=== PATIENT | male | born 1945 | race Caucasian/White ===

== ENCOUNTER 2018-02-13 14:25 | Emergency (ER) | payer MEDICARE, OTHER ==
[~2018-02-13] VITALS: Ht 175.3 cm; Wt 81.0 kg
[~2018-02-13 14:25] MED LIST: DIOV160T3 PO; GABA300C3 PO; GLUCTAB PO; MOBI7.5T PO; ULTR50TA PO
[2018-02-13] MEDS ORDERED: METF500T4 PO (14:39)
[2018-02-13] MEDS ORDERED: VALS160T4 PO (14:39)
[2018-02-13 14:40] VITALS: BP 125/85; PULSE 66; RESP 15; TEMP 98.9; O2SAT 95
--- NOTE | 2018-02-13 15:14 | PD ---
HPI Chief Complaint: General Weakness Time Seen by Provider: 15:01 Travel History International Travel<30 days: No Contact w/Intl Traveler<30days: No Traveled to known affect area: No History of Present Illness HPI 72yo M with PMH of COPD presents to the ED with c/o generalized weakness. Pt said he was going at his brother's house and he has little dogs. He looked down at the dogs and felt lightheaded. Said he is no longer lightheaded but still feels generalized weakness. Has been having some cough, nonbloody diarrhea. Pt is still a cig smoker. Denies any fever, chest pain, sob, n/v, abdominal pain, dysuria, hematuria, focal weakness or numbness. PFSH Past Medical History Diabetes: Yes Patient Takes Glucophage: Yes Diminished Hearing: No Fibromyalgia: Yes Hypertension: Yes Tetanus Vaccination: Unknown Influenza Vaccination: Yes ?: Not Past Surgical History Abdominal Surgery: Yes (HERNIA X 3) Tonsillectomy: Yes Social History Alcohol Use: No (PT DENIES) Tobacco Use: Yes (1 PPD) Substance Use: No Allergies-Medications (Allergen,Severity, Reaction): Coded Allergies: Sulfa (Sulfonamide Antibiotics) (Unverified Adverse Reaction, Intermediate , Rash, 05/19/17) Reported Meds & Prescriptions Reported Meds & Active Scripts Active Reported Valsartan-Hydrochlorothiazide 160-12.5 Mg Tab 1 Tab PO DAILY Metformin ER (Metformin HCl) 500 Mg Isha 500 Mg PO DAILY With evening meal Review of Systems Except as stated in HPI: all other systems reviewed are Neg Physical Exam Narrative GENERAL: 72yo M in mild distress. SKIN: Focused skin assessment warm/dry. HEAD: Atraumatic. Normocephalic. EYES: Pupils equal and round. No scleral icterus. No injection or drainage. ENT: No nasal bleeding or discharge. Mucous membranes pink and moist. NECK: Trachea midline. No JVD. CARDIOVASCULAR: Regular rate and rhythm. No murmur appreciated. RESPIRATORY: No accessory muscle use. Coarse breath sounds bilaterally. GASTROINTESTINAL: Abdomen soft, non-tender, nondistended. No rebound tenderness or guarding. MUSCULOSKELETAL: No obvious deformities. No clubbing. No cyanosis. No edema. NEUROLOGICAL: Awake and alert. No obvious cranial nerve deficits. Motor grossly within normal limits in all extremities. Sensation equal bilaterally. Normal speech. PSYCHIATRIC: Appropriate mood and affect; insight and judgment normal. Data Data Last Documented VS Vital Signs Date Time Temp Pulse Resp B/P (MAP) Pulse Ox O2 Delivery O2 Flow Rate FiO2 02/13/18 17:54 72 16 170/80 (110) 100 Room Air 02/13/18 14:40 98.9 Orders Orders Electrocardiogram (02/13/18 15:10) Basic Metabolic Panel (Bmp) (02/13/18 15:10) Complete Blood Count With Diff (02/13/18 15:10) Magnesium (Mg) (02/13/18 15:10) Urinalysis - C+S If Indicated (02/13/18 15:10) Orthostatic Vital Signs (02/13/18 15:10) Chest, Single Ap (02/13/18 ) Urinary Catheter Insert/Apply (02/13/18 17:07) Sodium Chlor 0.9% 1000 Ml Inj (Ns 1000 M (02/13/18 17:15) Labs Laboratory Tests Test 02/13/18 15:45 02/13/18 17:50 White Blood Count 13.7 TH/MM3 Red Blood Count 4.45 MIL/MM3 Hemoglobin 14.0 GM/DL Hematocrit 42.4 % Mean Corpuscular Volume 95.3 FL Mean Corpuscular Hemoglobin 31.4 PG Mean Corpuscular Hemoglobin Concent 33.0 % Red Cell Distribution Width 12.7 % Platelet Count 231 TH/MM3 Mean Platelet Volume 7.3 FL Neutrophils (%) (Auto) 86.4 % Lymphocytes (%) (Auto) 8.3 % Monocytes (%) (Auto) 3.7 % Eosinophils (%) (Auto) 0.6 % Basophils (%) (Auto) 1.0 % Neutrophils # (Auto) 11.9 TH/MM3 Lymphocytes # (Auto) 1.1 TH/MM3 Monocytes # (Auto) 0.5 TH/MM3 Eosinophils # (Auto) 0.1 TH/MM3 Basophils # (Auto) 0.1 TH/MM3 CBC Comment DIFF FINAL Differential Comment Blood Urea Nitrogen 19 MG/DL Creatinine 1.00 MG/DL Random Glucose 134 MG/DL Calcium Level 9.0 MG/DL Magnesium Level 2.1 MG/DL Sodium Level 136 MEQ/L Potassium Level 4.0 MEQ/L Chloride Level 105 MEQ/L Carbon Dioxide Level 24.7 MEQ/L Anion Gap 6 MEQ/L Estimat Glomerular Filtration Rate 73 ML/MIN Urine Color YELLOW Urine Turbidity CLEAR Urine pH 6.0 Urine Specific [place] 1.025 Urine Protein TRACE mg/dL Urine Glucose (UA) NEG mg/dL Urine Ketones 15 mg/dL Urine Occult Blood TRACE Urine Nitrite NEG Urine Bilirubin NEG Urine Urobilinogen 0.2 MG/DL Urine Leukocyte Esterase NEG Urine RBC 4-9 /hpf Urine WBC 0-2 /hpf Urine Squamous Epithelial Cells 6-8 /hpf Urine Bacteria NONE /hpf Microscopic Urinalysis Comment CULT NOT INDICATED MDM Medical Decision Making Medical Screen Exam Complete: Yes Emergency Medical Condition: Yes Interpretation(s) EKG: NSR 66bpm. Normal axis. No ST segment elevation or depression. Differential Diagnosis Dehydration vs. electrolyte abnormality vs. arrhythmia vs. pneumonia vs. UTI Narrative Course 72yo M with COPD here with c/o lightheadedness with neck movement that has resolved, generalized weakness and diarrhea. Pt has COPD and coarse breath sounds. He does not want any treatment and denies any chest pain or sob. Labs reviewed, mild leukocytosis at 13.7. H/H normal. BMP unremarkable except mildly elevated BUN:creatinine ratio. Pt likely dehydrated, given NS IVF. Creatinine normal. CXR negative. Vital signs stable. Pt said he has trouble urinating in the hospital on command so wanted a zazueta. Zazueta catheter placed and only 250cc of urine came out. Pt has no abdominal pain or distension on exam. Pt feels better and wants to go home. I gave pt the option of keeping the zazueta and following up with urology or remove zazueta and come back if he cant urinate. Pt said he will have it remove and usually have no problem urinating at home but will return if he cant urinate. Return precautions given. Diagnosis Primary Impression: Generalized weakness Patient Instructions: General Instructions Departure Forms: Tests/Procedures Additional Instructions: Please follow up with your primary care physician in 2-3 days. Return to the ED if symptoms worsen. Med/Other Pt SpecificInfo: No Change to Meds Disposition: 01 DISCHARGE HOME Condition: Stable Chantelle Gilbert DO February 13, 2018 15:14
[2018-02-13 15:33] VITALS: BP_SYST 140; BP_SYST 150; BP_SYST 161; BP_DIAS 74; BP_DIAS 80; BP_DIAS 82; RESP 16
--- NOTE | 2018-02-13 15:39 | RADRPT ---
EXAM DATE/TIME: 02/13/2018 15:25 [facility] COMPARISON: No previous studies available for comparison. INDICATIONS : Sudden onset of weakness, dizzy, syncopy, today MEDICAL HISTORY : Chronic obstructive pulmonary disease. SURGICAL HISTORY : None. ENCOUNTER: Initial ACUITY: 1 day PAIN SCORE: 0/10 LOCATION: Bilateral chest FINDINGS: A single view of the chest demonstrates the lungs to be symmetrically aerated without evidence of mas s, infiltrate or effusion. The cardiomediastinal contours are unremarkable. Osseous structures are intact. CONCLUSION: No acute disease. Raphael Byrd MD FACR on February 13, 2018 at 15:37 Board Certified Radiologist. This report was verified electronically.
[2018-02-13 16:01] LABS: AUTOMATED NEUTROPHIL # 11.9 TH/MM3 (1.8-7.7); BASOPHIL # 0.1 TH/MM3 (0-0.2); EOSINOPHIL # 0.1 TH/MM3 (0-0.4); EOSINOPHIL % 0.6 % (0.0-4.0); HEMATOCRIT 42.4 % (39.0-51.0); LYMPH % 8.3 % (9.0-44.0); LYMPHOCYTE # 1.1 TH/MM3 (1.0-4.8); MEAN CELL VOLUME 95.3 FL (80.0-100.0); MEAN CORPUSCULAR HEMOGLOBIN 31.4 PG (27.0-34.0); MEAN PLATELET VOLUME 7.3 FL (7.0-11.0); MONO % 3.7 % (0.0-8.0); MONOCYTE # 0.5 TH/MM3 (0-0.9); NEUT % 86.4 % (16.0-70.0); PLATELET COUNT 231 TH/MM3 (150-450); RED BLOOD COUNT 4.45 MIL/MM3 (4.50-5.90); RED CELL DISTRIBUTION WIDTH 12.7 % (11.6-17.2); WHITE BLOOD COUNT 13.7 TH/MM3 (4.0-11.0)
[2018-02-13 16:13] LABS: BICARBONATE 24.7 MEQ/L (21.0-32.0); MAGNESIUM 2.1 MG/DL (1.5-2.5)
[2018-02-13] MEDS ORDERED: SODIUM CHLOR 0.9% 1000 ML INJ 1,000 ML IV ONE (17:15)
[2018-02-13 17:54] VITALS: BP 170/80; PULSE 72; RESP 16; O2SAT 100
[2018-02-13 18:05] LABS: BILIRUBIN, URINE NEG (NEG); BLOOD, URINE TRACE (NEG); GLUCOSE,URINE NEG (NEG); KETONE, URINE 15 mg/dL (NEG); NITRITE,URINE NEG (NEG); URINE COLOR YELLOW (YELLW/STRAW); URINE LEUKOCYTE ESTERASE NEG (NEG)
[2018-02-13 18:12] LABS: WBC, URINE 0-2 /hpf (0-5)
[2018-02-13 19:47] VITALS: BP 135/72
--- NOTE | 2018-02-14 20:07 | EKG ---
Date Performed: 02/13/2018 Time Performed: 15:21:37 PTAGE: 72 years EKG: Sinus rhythm Consider anteroseptal ischemia. ABNORMAL ECG PREVIOUS TRACING : 11/14/2013 14.07 DOCTOR: Pro Osborn Interpretating Date/Time 02/14/2018 20:05:55
== END 2018-02-13 19:50 | disposition home or self-care (01) ==
LOC: PHED 14:25
DX: R53.1 Weakness (principal); R94.31 Abnormal electrocardiogram [ECG] [EKG]; J44.9 Chronic obstructive pulmonary disease, unspecified; E11.9 Type 2 diabetes mellitus without complications; I10 Essential (primary) hypertension; M79.7 Fibromyalgia; F17.210 Nicotine dependence, cigarettes, uncomplicated
CPT/HCPCS: 51702; 71045; 80048; 81001; 83735; 85025; 93005; 96360; 99285; J7030

== ENCOUNTER 2018-03-16 17:22 | Inpatient (IN) | payer MEDICARE ==
[~2018-03-16] VITALS: Ht 177.8 cm; Wt 94.4 kg
[~2018-03-16 17:22] MED LIST changes: -DIOV160T3 PO; -GABA300C3 PO; -GLUCTAB PO; +METF500T4 PO; -MOBI7.5T PO; -ULTR50TA PO; +VALS160T4 PO
[2018-03-16 17:30] VITALS: BP 127/64; PULSE 106; RESP 20; TEMP 100; O2SAT 93
[2018-03-16] MEDS ORDERED: SODIUM CHLOR 0.9% 1000 ML INJ 1,000 ML IV SCH (17:39)
[2018-03-16 17:42] VITALS: O2SAT 95
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
[2018-03-16] MEDS ORDERED: NYSTATIN SUSP 500,000 U/5 ML CUP SWISH-SWAL ONE (17:45)
--- NOTE | 2018-03-16 18:12 | RADRPT ---
EXAM DATE: 03/16/2018 5:58 PM EDT AGE/SEX: 72 years / Male INDICATIONS: Fever CLINICAL DATA: This is the patient's initial encounter. Patient reports that signs and symptoms have been present for 1 day and indicates a pain score of 0/10. MEDICAL/SURGICAL HISTORY: None. None. COMPARISON: [facility], CHEST SINGLE AP, 02/13/2018. . FINDINGS: A single AP view of the chest demonstrates the lungs to be symmetrically aerated without evidence of mass, infiltrate or effusion. The cardiomediastinal contours are unremarkable. Osseous structures a re intact. CONCLUSION: Negative examination. Electronically signed by: Shahzad Steel MD 03/16/2018 6:10 PM EDT
[2018-03-16] MEDS ORDERED: ACETAMINOPHEN 325 MG TAB PO ONE (18:15)
[2018-03-16 18:32] LABS: AUTOMATED NEUTROPHIL # 11.2 TH/MM3 (1.8-7.7); BASOPHIL # 0.1 TH/MM3 (0-0.2); BASOPHIL % 0.4 % (0.0-2.0); EOSINOPHIL % 0.1 % (0.0-4.0); HEMATOCRIT 42.1 % (39.0-51.0); HEMOGLOBIN 14.4 GM/DL (13.0-17.0); LYMPH % 8.8 % (9.0-44.0); LYMPHOCYTE # 1.2 TH/MM3 (1.0-4.8); MEAN CELL VOLUME 93.3 FL (80.0-100.0); MEAN CORPUSCULAR HEMOGLOBIN 31.9 PG (27.0-34.0); MEAN CORPUSCULAR HGB CONC 34.2 % (32.0-36.0); MEAN PLATELET VOLUME 8.2 FL (7.0-11.0); MONO % 8.7 % (0.0-8.0); MONOCYTE # 1.2 TH/MM3 (0-0.9); PLATELET COUNT 194 TH/MM3 (150-450); RED BLOOD COUNT 4.51 MIL/MM3 (4.50-5.90); RED CELL DISTRIBUTION WIDTH 13.5 % (11.6-17.2); WHITE BLOOD COUNT 13.6 TH/MM3 (4.0-11.0)
[2018-03-16 18:41] LABS: INTERNATIONAL NORMALIZED RATIO 1.1 RATIO; PROTHROMBIN TIME - PATIENT 11.1 SEC (9.8-11.6)
[2018-03-16 19:01] LABS: ALBUMIN 3.3 GM/DL (3.4-5.0); ALKALINE PHOSPHATASE 105 U/L (45-117); ALT (GPT) 20 U/L (12-78); AST (GOT) 12 U/L (15-37); BICARBONATE 22.2 MEQ/L (21.0-32.0); BLOOD UREA NITROGEN 9 MG/DL (7-18); CALCIUM 8.5 MG/DL (8.5-10.1); CHLORIDE 108 MEQ/L (98-107); CREATININE 1.41 MG/DL (0.60-1.30); GLOMERULAR FILTRATION RATE 49 ML/MIN (>89); GLUCOSE,RANDOM 113 MG/DL (74-106); MAGNESIUM 1.7 MG/DL (1.5-2.5); SODIUM (NA) 141 MEQ/L (136-145)
[2018-03-16] MEDS ORDERED: PIPERACIL-TAZO 3.375 GM PREMIX 50 ML IV ONE (19:30)
[2018-03-16] MEDS ORDERED: VANCOMYCIN INJ 1,000 MG in SODIUM CHLOR 0.9% 250 ML INJ 250 ML IV ONE (19:30)
[2018-03-16] MEDS ORDERED: POTASSIUM CHLORIDE 20 MEQ CONTROLLED RELEASE TAB PO ONE (19:30)
[2018-03-16 19:31] VITALS: BP 118/61; PULSE 88; RESP 20; O2SAT 100
[2018-03-16 20:00] VITALS: BP 142/70; PULSE 80; RESP 17; O2SAT 99
[2018-03-16 20:22] LABS: BACTERIA, URINE RARE /hpf; BILIRUBIN, URINE NEG (NEG); BLOOD, URINE MOD (NEG); CALCIUM OXALATE CRYSTALS,URINE RARE /hpf; GLUCOSE,URINE NEG (NEG); HYALINE CAST, URINE 8 /lpf (RARE); KETONE, URINE 10 mg/dL (NEG); MUCUS URINE FEW /lpf (OCC); NITRITE,URINE NEG (NEG); URINE COLOR YELLOW (YELLW/STRAW); URINE LEUKOCYTE ESTERASE NEG (NEG)
[2018-03-16 21:00] VITALS: BP 133/68; PULSE 76; RESP 16; O2SAT 96
--- NOTE | 2018-03-16 21:39 | RADRPT ---
EXAM DATE: 03/16/2018 6:40 PM EDT AGE/SEX: 72 years / Male INDICATIONS: Altered mental status. CLINICAL DATA: This is the patient's initial encounter. Patient reports that signs and symptoms have been present for 1 day and indicates a pain score of Nonresponsive. MEDICAL/SURGICAL HISTORY: Hypertension. Diabetes. Fibromyalgia. None. RADIATION DOSE: 37.22 CTDI (mGy) COMPARISON: [facility] – [place], [place] BRAIN W/O CONTRAST, 11/14/2013. . TECHNIQUE: CT of the head without contrast. Using automated exposure control and adjustment of the mA and/or kV according to patient size, radiation dose was kept as low as reasonably achievable to ob tain optimal diagnostic quality images. FINDINGS: There is a small focus of encephalomalacia in the right frontoparietal region. There is patchy mild d iminished attenuation in deep white matter. Small foci of encephalomalacia in the cerebellar hemisphe res bilaterally are unchanged. There is no evidence of intracranial hemorrhage or mass. Nothing to sp ecifically suggest acute infarction. Stable opacification of the left maxillary sinus. Extracranial structures otherwise unremarkable. CONCLUSION: 1. No acute intracranial findings. Electronically signed by: Shahzad Steel MD 03/16/2018 9:37 PM EDT
--- NOTE | 2018-03-16 21:56 | PD ---
Physical Exam Date Seen by Provider: Mar 16, 2018 Time Seen by Provider: 21:50 Narrative GENERAL: Well-developed well-nourished mildly disheveled male in no acute distress no respiratory distress; GCS 14 SKIN: Warm and dry. HEAD: Normocephalic. EYES: No scleral icterus. Pupils equal round reactive to light extraocular muscles intact. No injection or drainage. NECK: Supple, trachea midline. No JVD or lymphadenopathy. No meningismus no nuchal rigidity. CARDIOVASCULAR: Regular rate and rhythm without murmurs, gallops, or rubs. RESPIRATORY: Breath sounds equal bilaterally. No accessory muscle use. GASTROINTESTINAL: Abdomen soft, non-tender, nondistended. MUSCULOSKELETAL: No cyanosis, or edema. BACK: Nontender without obvious deformity. No CVA tenderness. Data Data Last Documented VS Vital Signs Date Time Temp Pulse Resp B/P (MAP) Pulse Ox O2 Delivery O2 Flow Rate FiO2 03/16/18 21:00 76 16 133/68 (89) 96 Room Air 03/16/18 17:30 100.0 Orders Orders Sepsis Workup Initiated (03/16/18 ) Electrocardiogram (03/16/18 17:39) Complete Blood Count With Diff (03/16/18 17:39) Comprehensive Metabolic Panel (03/16/18 17:39) Prothrombin Time / Inr (Pt) (03/16/18 17:39) Act Partial Throm Time (Ptt) (03/16/18 17:39) Lactic Acid Sepsis Protocol (03/16/18 17:39) Magnesium (Mg) (03/16/18 17:39) Urinalysis - C+S If Indicated (03/16/18 17:39) Blood Culture (03/16/18 17:39) Chest, Single Ap (03/16/18 17:39) Blood Glucose (03/16/18 17:39) Ecg Monitoring (03/16/18 17:39) Iv Access Insert/Monitor (03/16/18 17:39) Oximetry (03/16/18 17:39) Oxygen Administration (03/16/18 17:39) Ct Brain W/O Iv Contrast(Rout) (03/16/18 17:39) Nystatin Liq (Mycostatin Liq) (03/16/18 17:45) Sodium Chlor 0.9% 1000 Ml Inj (Ns 1000 M (03/16/18 17:39) Alcohol (Ethanol) (03/16/18 17:53) Acetaminophen (Tylenol) (03/16/18 18:15) Potassium Chloride (Kcl) (03/16/18 19:30) Vancomycin Inj (Vancomycin Inj) (03/16/18 19:30) Piperacil-Tazo 3.375 Gm Premix (Zosyn 3. (03/16/18 19:30) Urine Culture (03/16/18 19:40) Labs Laboratory Tests Test 03/16/18 17:47 03/16/18 19:40 White Blood Count 13.6 TH/MM3 Red Blood Count 4.51 MIL/MM3 Hemoglobin 14.4 GM/DL Hematocrit 42.1 % Mean Corpuscular Volume 93.3 FL Mean Corpuscular Hemoglobin 31.9 PG Mean Corpuscular Hemoglobin Concent 34.2 % Red Cell Distribution Width 13.5 % Platelet Count 194 TH/MM3 Mean Platelet Volume 8.2 FL Neutrophils (%) (Auto) 82.0 % Lymphocytes (%) (Auto) 8.8 % Monocytes (%) (Auto) 8.7 % Eosinophils (%) (Auto) 0.1 % Basophils (%) (Auto) 0.4 % Neutrophils # (Auto) 11.2 TH/MM3 Lymphocytes # (Auto) 1.2 TH/MM3 Monocytes # (Auto) 1.2 TH/MM3 Eosinophils # (Auto) 0.0 TH/MM3 Basophils # (Auto) 0.1 TH/MM3 CBC Comment DIFF FINAL Differential Comment Prothrombin Time 11.1 SEC Prothromb Time International Ratio 1.1 RATIO Activated Partial Thromboplast Time 27.3 SEC Blood Urea Nitrogen 9 MG/DL Creatinine 1.41 MG/DL Random Glucose 113 MG/DL Total Protein 6.0 GM/DL Albumin 3.3 GM/DL Calcium Level 8.5 MG/DL Magnesium Level 1.7 MG/DL Alkaline Phosphatase 105 U/L Aspartate Amino Transf (AST/SGOT) 12 U/L Alanine Aminotransferase (ALT/SGPT) 20 U/L Total Bilirubin 1.0 MG/DL Sodium Level 141 MEQ/L Potassium Level 2.9 MEQ/L Chloride Level 108 MEQ/L Carbon Dioxide Level 22.2 MEQ/L Anion Gap 11 MEQ/L Estimat Glomerular Filtration Rate 49 ML/MIN Lactic Acid Level 1.2 mmol/L Urine Color YELLOW Urine Turbidity HAZY Urine pH 7.0 Urine Specific [place] 1.018 Urine Protein 30 mg/dL Urine Glucose (UA) NEG mg/dL Urine Ketones 10 mg/dL Urine Occult Blood MOD Urine Nitrite NEG Urine Bilirubin NEG Urine Urobilinogen 2.0 MG/DL Urine Leukocyte Esterase NEG Urine RBC 89 /hpf Urine WBC 4 /hpf Urine Calcium Oxalate Crystals RARE /hpf Urine Bacteria RARE /hpf Urine Hyaline Casts 8 /lpf Urine Mucus FEW /lpf Microscopic Urinalysis Comment CATH-CULTURE IND MDM Medical Record Reviewed: Yes Supervised Visit with DORIAN: Yes Differential Diagnosis Altered mentation, sepsis,sirs, dehydration, electrolyte disturbance, metabolic disturbance, ICH, TIA, CVA, substance ingestion, delirium psychosis Narrative Course I, Dr. Coker, have reviewed the advance practice practitioner's documentation and am in agreement, met with the patient face to face, made the diagnosis, and the medical decision making was done by me. *My assessment and Findings: 32-year-old male presents to the emergency department by EMS transport from home where reportedly per EMS his nephew found him to be altered from his baseline when checking on him today. Patient here thinks that he is in [place] visiting a friend at the hospital and that the president is [place]. Patient denies any injury or fall. Patient does not know if he has had any fever or chills. Patient does not report any chest pain shortness of breath or abdominal pain. Patient has history of recent visit to the emergency department in February for generalized weakness. Patient denies any antibiotic use. On physical exam patient is pleasant elderly male in no acute distress no respiratory distress appears dehydrated without any meningismus lung sounds are clear to auscultation heart sounds are regular without murmur or rub abdomen soft nontender. Plan would be to obtain CBC metabolic panel lactic acid urinalysis chest x-ray and CT brain. To evaluate this patient for AMS with concern for infectious etiology electrolyte or metabolic disturbance delirium versus ingestant versus mass versus TIA CVA or. I concur with current evaluation initiated by mid-level provider. Concern for sirs (HR,WCC)/sepsis ( possible uti) with altered mentation. Sepsis Criteria SIRS Criteria (2 or more): Heart rate over 90, WBC > 19360, < 4000 or > 10% bands Danisha Coker MD Mar 16, 2018 21:56
[2018-03-16 23:14] VITALS: BP 126/64; PULSE 67; RESP 14; TEMP 98.2; O2SAT 95
[2018-03-16] MEDS ORDERED: MAGNESIUM HYDROXIDE SUSP 30 ML CUP PO PRN (23:15)
[2018-03-16] MEDS ORDERED: NALOXONE HCL 0.4 MG/ML AMP IV PUSH PRN (23:15)
[2018-03-16] MEDS ORDERED: LACTULOSE SYRUP 20 GM/30 ML CUP PO PRN (23:15)
[2018-03-16] MEDS ORDERED: BISACODYL 10 MG SUPP RECTAL PRN (23:15)
[2018-03-16] MEDS ORDERED: SENNOSIDES 8.6 MG TAB PO PRN (23:15)
[2018-03-16] MEDS ORDERED: ONDANSETRON HCL 4 MG/2 ML VIAL IVP PRN (23:15)
[2018-03-16] MEDS ORDERED: SODIUM CHLORIDE 0.9% FLUSH 10 ML FLUSH IV FLUSH PRN (23:15)
[2018-03-17] VITALS (8 sets, daily range): BP systolic 140–186; BP diastolic 79–101; PULSE 71–76; RESP 16–20; TEMP 97–98.9; O2SAT 95–97
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
[2018-03-17] MEDS ORDERED: DEXTROSE 50% IN WATER 50 ML VIAL(D50) IV PUSH PRN (00:15)
[2018-03-17] MEDS ORDERED: GLUCAGON 1 MG/ML VIAL OTHER PRN (00:15)
[2018-03-17] MEDS: NS + KCL 20 MEQ INJ 1,000 ML IV SCH ×4 (01:04→23:31)
[2018-03-17 04:20] LABS: AUTOMATED NEUTROPHIL # 5.4 TH/MM3 (1.8-7.7); BASOPHIL % 0.4 % (0.0-2.0); EOSINOPHIL # 0.1 TH/MM3 (0-0.4); HEMATOCRIT 40.5 % (39.0-51.0); HEMOGLOBIN 13.9 GM/DL (13.0-17.0); LYMPH % 20.8 % (9.0-44.0); LYMPHOCYTE # 1.6 TH/MM3 (1.0-4.8); MEAN CELL VOLUME 94.1 FL (80.0-100.0); MEAN CORPUSCULAR HEMOGLOBIN 32.4 PG (27.0-34.0); MEAN CORPUSCULAR HGB CONC 34.4 % (32.0-36.0); MEAN PLATELET VOLUME 8.4 FL (7.0-11.0); MONO % 9.8 % (0.0-8.0); MONOCYTE # 0.8 TH/MM3 (0-0.9); PLATELET COUNT 170 TH/MM3 (150-450); RED BLOOD COUNT 4.31 MIL/MM3 (4.50-5.90); RED CELL DISTRIBUTION WIDTH 13.9 % (11.6-17.2); WHITE BLOOD COUNT 7.9 TH/MM3 (4.0-11.0)
[2018-03-17 04:49] LABS: BICARBONATE 24.1 MEQ/L (21.0-32.0); CALCIUM 8.4 MG/DL (8.5-10.1); CREATININE 1.33 MG/DL (0.60-1.30)
[2018-03-17] MEDS: HEPARIN SODIUM - SQ 10,000 UNITS/ML VIAL SQ SCH ×3 (05:57→22:04)
[2018-03-17] MEDS: cefTRIAXone INJ 1,000 MG in SODIUM CHLORIDE 0.9% INJ 100 ML IV SCH (05:58)
[2018-03-17] MEDS: INSULIN ASPART SUPPLEMENTAL SCALE SQ SCH ×4 (08:00→21:00)
[2018-03-17] MEDS: DOCUSATE SODIUM 50 MG/SENNA 8.6 MG TAB PO SCH ×2 (08:00→22:03)
[2018-03-17] MEDS: SODIUM CHLORIDE 0.9% FLUSH 10 ML FLUSH IV FLUSH SCH ×2 (08:00→22:02)
[2018-03-17] MEDS ORDERED: LORazepam 2 MG/ML VIAL IV PUSH ONE (14:45)
--- NOTE | 2018-03-17 18:04 | RADRPT ---
EXAM DATE: 03/17/2018 4:37 PM EDT AGE/SEX: 72 years / Male INDICATIONS: TIA. CLINICAL DATA: This is the patient's initial encounter. Patient reports that signs and symptoms have been present for 1 day and indicates a pain score of 3/10. MEDICAL/SURGICAL HISTORY: Diabetes mellitus type II. Total knee replacement, left. Total knee replacement, right. Hernia repair. COMPARISON: [facility] [place], CT BRAIN W/O CONTRAST, 03/16/2018. . TECHNIQUE: Multiplanar, multisequence examination of the brain was performed without contrast. FINDINGS: Areas of encephalomalacia are identified in the right posterior temporal lobe and right cerebellar he misphere. Cortical and subcortical hyperintensities identified in the right temporal occipital region characteristic of gliosis. There is no evidence of restricted diffusion characteristic of an acute stroke. There is no evidence of acute hemorrhage. Significant T2 hyperintense changes are present throughout the cerebral white matter. There is centra l atrophy with enlargement of the lateral ventricles. CONCLUSION: 1. 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 2. Moderate chronic ischemic white matter changes 3. No evidence of acute infarct, mass, edema or hemorrhage. 4. Opacified left maxillary sinus. Electronically signed by: Darnell Thomas MD 03/17/2018 6:03 PM EDT
--- NOTE | 2018-03-17 18:36 | EKG ---
Date Performed: 03/16/2018 Time Performed: 18:07:28 PTAGE: 72 years EKG: SINUS TACHYCARDIA MARKED LEFT AXIS DEVIATION INFERIOR MYOCARDIAL INFARCTION POSSIBLE VIKA LATERAL MYOCARDIAL INFARCTION when compared to prior EKG, patient is now tachycardic ABNORMAL ECG PREVIOUS TRACING : 02/13/2018 15.21 DOCTOR: Galina Villarreal Interpretating Date/Time 03/17/2018 18:36:28
[2018-03-17] MEDS ORDERED: POTASSIUM CHLORIDE 10 MEQ CONTROLLED RELEASE TAB PO ONE (19:00)
[2018-03-17] MEDS: NICOTINE 21 MG/24 HR PATCH T-DERMAL SCH (19:30)
[2018-03-17] MEDS: REMOVE OLD NICOTINE PATCH T-DERMAL SCH (21:00)
[2018-03-18] VITALS (9 sets, daily range): BP systolic 152–181; BP diastolic 87–95; PULSE 71–82; RESP 16–20; TEMP 98–98.4; O2SAT 94–98
[2018-03-18] MEDS: cefTRIAXone INJ 1,000 MG in SODIUM CHLORIDE 0.9% INJ 100 ML IV SCH (06:00)
[2018-03-18] MEDS: HEPARIN SODIUM - SQ 10,000 UNITS/ML VIAL SQ SCH ×3 (06:00→21:05)
[2018-03-18] MEDS: NS + KCL 20 MEQ INJ 1,000 ML IV SCH ×2 (07:15→12:28)
[2018-03-18] MEDS: INSULIN ASPART SUPPLEMENTAL SCALE SQ SCH ×4 (08:00→21:00)
--- NOTE | 2018-03-18 08:13 | HHI.PR ---
Subjective Remarks He is more awake and alert however he is pleasantly confused. He is denying any weakness. However says mentation is off. Does not remember family visiting him last night.Full name, location , and the manager operating name. No fever or chills. No nausea or vomiting. Eating better. Says however he does not have much appetite. Follows commands. Objective Vitals Vital Signs Date Time Temp Pulse Resp B/P (MAP) Pulse Ox O2 Delivery O2 Flow Rate FiO2 03/18/18 04:00 73 03/18/18 04:00 98.0 75 20 164/92 (116) 98 03/18/18 00:00 98.4 77 20 152/87 (108) 97 03/18/18 00:00 73 03/17/18 23:19 Room Air 03/17/18 20:00 76 03/17/18 20:00 97.8 73 20 161/86 (111) 97 03/17/18 17:00 72 03/17/18 17:00 98.2 75 20 154/101 (118) 97 03/17/18 12:00 97.6 74 20 140/85 (103) 97 03/17/18 11:55 71 03/17/18 08:30 97.0 74 20 159/89 (112) 96 I/O 03/17/18 03/17/18 03/17/18 03/18/18 03/18/18 03/18/18 07:00 15:00 23:00 07:00 15:00 23:00 Intake Total 470 ml 1000 ml 600 ml 1000 ml Output Total 325 ml 600 ml 700 ml Balance 145 ml 1000 ml 0 ml 300 ml Intake Oral 120 ml 600 ml IV Total 350 ml 1000 ml 1000 ml Output Urine Total 325 ml 600 ml 700 ml # Bowel Movements 0 1 3 Result Diagram: 03/17/18 0330 03/17/18 0330 Imaging Last Impressions Brain MRI 03/17/18 0000 Signed Impressions: CONCLUSION: 1. 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 2. Moderate chronic ischemic white matter changes 3. No evidence of acute infarct, mass, edema or hemorrhage. 4. Opacified left maxillary sinus. Head CT 03/16/181738 Signed Impressions: CONCLUSION: 1. No acute intracranial findings. Chest X-Ray 03/16/181738 Signed Impressions: CONCLUSION: Negative examination. Objective Remarks GENERAL: male lying in bed, sleeping CARDIOVASCULAR: Regular rate and rhythm without murmurs, gallops, or rubs. RESPIRATORY: Clear to auscultation. Breath sounds equal bilaterally. No wheezes , rales, or rhonchi. GASTROINTESTINAL: Abdomen soft, non-tender, nondistended. No hepato-splenomegaly , or palpable masses. No guarding. MUSCULOSKELETAL: Extremities without clubbing, cyanosis, or edema. No joint tenderness, effusion, or edema noted. No calf tenderness. NEUROLOGICAL: More awake and alert. Pleasantly confused. Oriented only to self. Believes he is in [place] and at [place] is the president. Moves all 4 extremities spontaneously. A/P Assessment and Plan Acute encephalopathy 2/2 bacteremia poss UTI. Resolving however per family the patient is not at baseline. Unclear etiology, may be infectious in nature Head CT negative for acute process Brain MRI reviewed encephalomalacia, old temporal occipital and cerebellar strokes. We will consult neurology for altered mental status and aphasia Ammonia level slightly elevated. Start lactulose IVF NS +20 KCl at 125 cc/hour. Monitor lytes Consult PT/OT/speech therapy. Do cognitive evaluation Bacteremia Consult ID UA with rare bacteria bladder distention Urine culture pending Patient with history of recent UTI Rocephin Hypokalemia Status post p.o./IV repletion Monitor BMP. Monitor and replace as need. CHRIS IV fluid hydration Monitor renal function Diabetes mellitus type 2 Holding home metformin Sliding-scale insulin Monitor blood glucose Hypertension Clonidine as needed M. Patient smokes approximately 1 pack/day. Counselled. Nicotine patch. DVT ppx: Heparin Discussed with the patient, nurse. Discussed with family last night 03/17/18. Patient lives alone. [place] if patient does agree. Gladys Win MD Mar 18, 2018 08:13
[2018-03-18] MEDS: HYDROCHLOROTHIAZIDE 12.5 MG CAP PO SCH (08:22)
[2018-03-18] MEDS: NICOTINE 21 MG/24 HR PATCH T-DERMAL SCH (08:22)
[2018-03-18] MEDS: VALSARTAN 160 MG TAB PO SCH (08:22)
[2018-03-18] MEDS: DOCUSATE SODIUM 50 MG/SENNA 8.6 MG TAB PO SCH ×2 (08:22→20:36)
[2018-03-18] MEDS: SODIUM CHLORIDE 0.9% FLUSH 10 ML FLUSH IV FLUSH SCH ×2 (08:25→21:05)
[2018-03-18] MEDS ORDERED: NON-FORMULARY DRUG (Valsartan-Hydrochlorothiazide 1 TAB) PO SCH (09:00)
--- NOTE | 2018-03-18 15:08 | PQ ---
Physician Query Response Document PATIENT: MAXINE GREEN : 1945 ADMIT DATE: 03/16/2018 10:06 PM DISCH DATE: RESPONDING PROVIDER #: [email or web address] QUERY TEXT: CDS Clarification Sepsis, unspecified organism - POA in the setting of Encephalopathy and UTI requiring treatment with IV Rocephin Other explanation of clinical findings. Unable to determine (no explanation for clinical findings). The patient's Clinical Indicators include: The medical record reflects the following clinical findings, treatment, and risk factors. * Clinical Indicators - T-100.0, HR-106, WBC-13.6, UA with rare bacteria * Risk Factors - Recent h/o UTI * Treatment - IV Rocephin q24h Please clarify and document your clinical opinion in the progress notes and discharge summary includi ng the definitive and/or presumptive diagnosis (suspected or probable), related to the above clinical findings. Please include clinical findings supporting your diagnosis. Thank you, Vani Edwards CDS: Vani Edwards Contact Number: CDS/PORCELAIN WAXER ext. [phone] Query created by: Vani Edwards on 03/18/2018 3:00 PM RESPONSE TEXT: Patient with sepsis on admission , source of infection is blood, patient with bacteremia Electronically signed by: Gladys Win MD 03/18/2018 3:04 PM
[2018-03-18] MEDS ORDERED: LACTULOSE SYRUP 20 GM/30 ML CUP PO PRN (15:15)
--- NOTE | 2018-03-18 15:15 | HHI.PR ---
Addendum to Inpatient Note Additional Information Pt seen around 1400 full note to follow Talita Osborn MD Mar 18, 2018 15:15
--- NOTE | 2018-03-18 15:17 | PD.ID.CON ---
History of Present Illness Service ID Consult Requested By Dr Win Reason for Consult bacteremia Primary Care Physician Diego Neal MD Diagnoses: History of Present Illness Pt is a very poor historian; duuring interview he takes long pauses, reverberates and having hard time to find the words He ia 72-year-old male with a past medical history of diabetes mellitus, hypertension and fibromyalgia He presented yday to the emergency department for evaluation of confusion and a fever. The patient had a T-max of 100.2 per EMS. He reported me of being treated for UTI recently, but unable to provide any details. On presentaaion fever of 100.00, leukocytosis of 13.6 K and mild renal insufficiency UA with hematuria, CT with old changes, nothing acute oon MRI, but blood cultures today are positive for staph spp in both bottles of 1 set Review of Systems ROS Limitations: Poor Historian Past Family Social History Allergies: Coded Allergies: Sulfa (Sulfonamide Antibiotics) (Unverified Adverse Reaction, Intermediate , Rash, 03/16/18) Past Medical History Diabetes mellitus Fibromyalgia Hypertension Past Surgical History Hernia repair 3 Tonsillectomy Active Ordered Medications Medications where reviewed in EMR Antibiotics Include: CFTX Family History non contirbutory to curernt condition Social History Negative for alcohol and illicit drugs. Smokes 1 pack per day. Physical Exam Vital Signs Vital Signs Date Time Temp Pulse Resp B/P (MAP) Pulse Ox O2 Delivery O2 Flow Rate FiO2 03/18/18 12:00 98.0 71 16 152/91 (111) 96 03/18/18 11:31 71 03/18/18 08:00 98.0 73 19 181/91 (121) 94 03/18/18 07:07 73 03/18/18 07:07 Room Air 03/18/18 04:00 73 03/18/18 04:00 98.0 75 20 164/92 (116) 98 03/18/18 00:00 98.4 77 20 152/87 (108) 97 03/18/18 00:00 73 03/17/18 23:19 Room Air 03/17/18 20:00 76 03/17/18 20:00 97.8 73 20 161/86 (111) 97 03/17/18 17:00 72 03/17/18 17:00 98.2 75 20 154/101 (118) 97 Physical Exam CONSTITUTIONAL/GENERAL: This is an adequately nourished patient, in no apparent distress. TUBES/LINES/DRAINS: SKIN: No jaundice, rashes, or lesions. Ecchymoses on upper extremities. No wounds seen anteriorly. Skin temperature appropriate. Not diaphoretic. HEAD: Atraumatic. Normocephalic. EYES: Pupils equal and round and reactive. Extraocular motions intact. No scleral icterus. No injection or drainage. Fundi not examined. ENT: Hearing grossly normal. Nose without bleeding or purulent drainage. Throat without visible erythema, exudates, masses, or lesions. NECK: Trachea midline. Supple, nontender. No palpable thyroid enlargement or nodularity. CARDIOVASCULAR: Regular rate and rhythm without murmurs, gallops, or rubs. No JVD. Peripheral pulses symmetric. RESPIRATORY/CHEST: Symmetric, unlabored respirations. Clear to auscultation. Breath sounds equal bilaterally. No wheezes, rales, or rhonchi. GASTROINTESTINAL: Abdomen soft, non-tender, nondistended. No hepato-splenomegaly , or palpable masses. No guarding. Bowel sounds present. GENITOURINARY: Without palpable bladder distension. MUSCULOSKELETAL: Extremities without clubbing, cyanosis, or edema. No joint tenderness or effusion noted. No calf tenderness. No mottling or clubbing. LYMPHATICS: No palpable cervical or supraclavicular adenopathy. NEUROLOGICAL: Awake and alert. Motor and sensory grossly within normal limits. Follows commands. Mildly confused, recollection deficit is obvious, but speech is clear and coherent. Moves all extremities. PSYCHIATRIC: No obvious anxiety/depression. no apparent hallucinations or other psychotic thought process. Laboratory Date/Time Source Procedure Growth Status 03/17/18 19:20 Blood Peripheral Aerobic Blood Culture - Preliminary NO GROWTH IN 1 DAY Resulted 03/17/18 19:20 Blood Peripheral Anaerobic Blood Culture - Preliminary NO GROWTH IN 1 DAY Resulted 03/16/18 19:40 Urine Catheterized Urine Urine Culture - Final NO GROWTH IN 48 HOURS. Complete Result Diagram: 03/17/18 0330 03/17/18 0330 Imaging Last Impressions Brain MRI 03/17/18 0000 Signed Impressions: CONCLUSION: 1. 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 2. Moderate chronic ischemic white matter changes 3. No evidence of acute infarct, mass, edema or hemorrhage. 4. Opacified left maxillary sinus. Head CT 03/16/181738 Signed Impressions: CONCLUSION: 1. No acute intracranial findings. Chest X-Ray 03/16/181738 Signed Impressions: CONCLUSION: Negative examination. Assessment and Plan Assessment and Plan MenTal status change and fever ? from staph sepsis Staphylococcal sepsis Hematuria, but no e/o UTI cont vancomycin dc CFTX fu clx untill final furtther rec';s to follow Talita Osborn MD Mar 18, 2018 15:17
[2018-03-18] MEDS ORDERED: Vancomycin Consult Pharmacy 1 EA OTHER SCH (15:30)
--- NOTE | 2018-03-18 17:46 | PD.CONS ---
History of Present Illness Service Neurology Consult Requested By Medical for history of stroke, possible dementia Primary Care Physician Diego Neal MD History of Present Illness 72-year-old male admitted for fever confusion. Temperature 100 in the ER with effervescence at present no further fevers. Started on IV vancomycin and IV Rocephin. Infectious disease is also seeing the patient. Initial leukocytosis which has resolved. Patient denies any headache neck pain focal weakness visual loss-like disturbance. Denies any history of seizure. States he thinks he may have had a stroke but denies any deficit from it. Admits smoking half to 1 pack a day daily 11/2013 patient to the ER for dysarthria some right-sided weakness that apparently resolved. Patient left against medical advice. Review of Systems Except as stated in HPI: all other systems reviewed are Neg Past Family Social History Past Medical History (Obtained from medical records) Diabetes mellitus Fibromyalgia Hypertension Past Surgical History Hernia repair 3 Tonsillectomy Reported Medications Reported Meds & Active Scripts Active Reported Valsartan-Hydrochlorothiazide 160-12.5 Mg Tab 1 Tab PO DAILY Metformin ER (Metformin HCl) 500 Mg Isha 500 Mg PO DAILY With evening meal Allergies: Coded Allergies: Sulfa (Sulfonamide Antibiotics) (Unverified Adverse Reaction, Intermediate , Rash, 03/16/18) Family History Negative for seizure Social History Negative for alcohol and illicit drugs. Smokes 1 pack per day. Review of Systems All other ROS: ROS reviewed as documented in chart Past Family Social History Allergies: Coded Allergies: Sulfa (Sulfonamide Antibiotics) (Unverified Adverse Reaction, Intermediate , Rash, 03/16/18) Active Ordered Medications Current Medications Medications (Trade) Dose Ordered Sig/Ronald Route Start Time Stop Time Status Last Admin Potassium Chloride/Sodium Chloride 1,000 ml @ 125 mls/hr Q8H IV 03/16/18 23:15 03/18/18 12:28 Ceftriaxone Sodium 1000 mg/ Sodium Chloride 100 ml @ 200 mls/hr Q24H IV 03/17/18 06:00 03/18/18 06:00 (NS Flush) 2 ml UNSCH PRN IV FLUSH 03/16/18 23:15 (NS Flush) 2 ml BID IV FLUSH 03/17/18 09:00 03/17/18 22:02 (Tylenol) 650 mg Q4H PRN PO 6/13/18 23:15 (Zofran Inj) 4 mg Q6H PRN IVP 03/16/18 23:15 (Heparin Inj) 5,000 units Q8HR SQ 03/17/18 06:00 03/18/18 14:00 (Narcan Inj) 0.4 mg UNSCH PRN IV PUSH 03/16/18 23:15 (Maria Luisa-Colace) 1 tab BID PO 03/17/18 09:00 03/17/18 22:03 (Milk Of Magnesia Liq) 30 ml Q12H PRN PO 03/16/18 23:15 (Senokot) 17.2 mg Q12H PRN PO 03/16/18 23:15 (Dulcolax Supp) 10 mg DAILY PRN RECTAL 03/16/18 23:15 (D50w (Vial) Inj) 50 ml UNSCH PRN IV PUSH 03/17/18 00:15 (Glucagon Inj) 1 mg UNSCH PRN OTHER 03/17/18 00:15 (NovoLOG SUPPLEMENTAL SCALE) 1 ACHS SLIDING SCALE SQ 03/17/18 08:00 (Habitrol 21 Mg Patch.24 Hr) 1 patch DAILY T-DERMAL 03/17/18 19:30 03/18/18 08:22 Miscellaneous Information 1 HS T-DERMAL 03/17/18 21:00 (Diovan) 160 mg DAILY PO 03/18/18 09:00 03/18/18 08:22 (Microzide) 12.5 mg DAILY PO 03/18/18 09:00 03/18/18 08:22 (Lactulose Liq) 30 ml QID PRN PO 03/18/18 15:15 Pharmacy Profile Note 0 ml @ 0 mls/hr UNSCH OTHER 03/18/18 15:30 Vancomycin HCl 1500 mg/Sodium Chloride 515 ml @ 257.5 mls/ hr Q24H IV 03/18/18 18:00 [place] [place] Lab Info) SPECIFIC LAB TO BE ... ONCE ONCE .XX 03/21/18 17:45 03/21/18 17:46 Exam I&O / VS Vital Signs Date Time Temp Pulse Resp B/P (MAP) Pulse Ox O2 Delivery O2 Flow Rate FiO2 03/18/18 12:00 98.0 71 16 152/91 (111) 96 03/18/18 11:31 71 03/18/18 08:00 98.0 73 19 181/91 (121) 94 03/18/18 07:07 73 03/18/18 07:07 Room Air 03/18/18 04:00 73 03/18/18 04:00 98.0 75 20 164/92 (116) 98 03/18/18 00:00 98.4 77 20 152/87 (108) 97 03/18/18 00:00 73 03/17/18 23:19 Room Air 03/17/18 20:00 76 03/17/18 20:00 97.8 73 20 161/86 (111) 97 General: Alert and Oriented, No acute distress Eye: EOMI Respiratory: Non-labored respirations Neurologic: Alert, Oriented, Normal sensory, Normal motor, No focal defects, CN II-XII intact, Normal DTR's Psychiatric: Cooperative, Appropriate mood & affect Exam Comments Awake alert oriented 3 sitting up in bed at the dinner follows motor requests slow speech. Able name simple objects no twitching no involuntary movements noted extraocular was intact visual nevarez full tongue midline no pronator drift L to keep all 4 extremities gravity for greater than 5 seconds reflex symmetric gait not assessed secondary potential fall risk Review/Management Diagnosis/Plan: (1) Chronic arterial ischemic stroke ICD Codes: I69.30 - Unspecified sequelae of cerebral infarction Status: Chronic Plan: MRI brain scan reviewed. No acute stroke. Old right cerebellar stroke. Old right temporoparietal stroke. Atrophy mild to moderate periventricular white matter changes appreciated Mental status appears improved Question etiology of fever which has resolved; does not appear to have any [employer] encephalitis at present Recommendations EEG Aspirin for previous stroke Check carotids Check a B12 TSH Infectious disease following the patient Follow exam May have some mild vascular cognitive impairment. Patient should not drive further workup in the outpatient setting (2) SIRS (systemic inflammatory response syndrome) ICD Codes: R65.10 - Systemic inflammatory response syndrome (SIRS) of non- infectious origin without acute organ dysfunction Status: Acute Plan: Problem medical Sirs resolved (3) Altered mental status ICD Codes: R41.82 - Altered mental status, unspecified Status: Acute Plan: Improved (4) Acute kidney injury ICD Codes: N17.9 - Acute kidney failure, unspecified Status: Acute Plan: Medical following Oziel Mao MD Mar 18, 2018 17:46
[2018-03-18] MEDS: VANCOMYCIN INJ 1,500 MG in SODIUM CHLORID 0.9% 500 ML INJ 500 ML IV SCH (17:47)
[2018-03-18] MEDS: ASPIRIN EC 81 MG TABEC PO SCH (18:47)
[2018-03-18] MEDS: ACETAMINOPHEN 325 MG TAB PO PRN (18:47)
[2018-03-18] MEDS: REMOVE OLD NICOTINE PATCH T-DERMAL SCH (21:00)
[2018-03-18 21:16] LABS: CHOLESTEROL 120 MG/DL (120-200); TRIGLYCERIDES 151 MG/DL (42-150)
[2018-03-18 21:41] LABS: CHOLESTEROL/ HDL RATIO 5.26 RATIO; HDL CHOLESTEROL 22.8 MG/DL (40.0-60.0); LDL CHOLESTEROL 67 MG/DL (0-99)
--- NOTE | 2018-03-18 22:36 | RADRPT ---
EXAM DATE: 03/18/2018 10:11 PM EDT AGE/SEX: 72 years / Male INDICATIONS: Altered mental status. CLINICAL DATA: This is the patient's initial encounter. Patient reports that signs and symptoms have been present for 1 day and indicates a pain score of 0/10. MEDICAL/SURGICAL HISTORY: Hypertension. Diabetes. Fibromyalgia. Total knee replacement, left. Total knee replacement, right. Tonsillectomy. Hernia repair x 3. COMPARISON: No prior exams available for comparison. VELOCITY PARAMETERS: ICA/CCA Ratio: Right 1.04 , Left 1.03 ICA: Right 104 cm/sec, Left 86 cm/sec CCA: Right 100 cm/sec, Left 84 cm/sec ECA: Right 195 cm/sec, Left 144 cm/sec Vertebral: Right 46 cm/sec antegrade, Left 49 cm/sec antegrade FINDINGS: There is calcified plaque in the carotid bifurcations bilaterally and extending into the proximal int ernal carotid arteries. No hemodynamically significant stenosis. Vertebral artery flows antegrade mala aterally. CONCLUSION: Mild plaque formation without hemodynamically significant stenosis. Electronically signed by: Jovon Lei MD 03/18/2018 10:34 PM EDT
[2018-03-19] VITALS (7 sets, daily range): BP systolic 111–166; BP diastolic 81–107; PULSE 59–80; RESP 18; TEMP 97.7–98.4; O2SAT 96–98
[2018-03-19] MEDS: NS + KCL 20 MEQ INJ 1,000 ML IV SCH ×4 (00:26→23:15)
[2018-03-19] MEDS: ACETAMINOPHEN 325 MG TAB PO PRN ×2 (01:19→11:01)
[2018-03-19] MEDS: HEPARIN SODIUM - SQ 10,000 UNITS/ML VIAL SQ SCH ×3 (06:28→20:56)
[2018-03-19] MEDS: INSULIN ASPART SUPPLEMENTAL SCALE SQ SCH ×4 (08:00→20:29)
[2018-03-19] MEDS: ASPIRIN EC 81 MG TABEC PO SCH (09:00)
[2018-03-19] MEDS: SODIUM CHLORIDE 0.9% FLUSH 10 ML FLUSH IV FLUSH SCH ×2 (09:00→20:54)
--- NOTE | 2018-03-19 09:31 | HHI.PR ---
Subjective Remarks Is pleasantly confused. Mentation status improving to almost his baseline. No fever chills overnight. No nausea or vomiting. Objective Vitals Vital Signs Date Time Temp Pulse Resp B/P (MAP) Pulse Ox O2 Delivery O2 Flow Rate FiO2 03/19/18 04:07 59 03/19/18 04:00 98.2 65 18 160/81 (107) 96 03/19/18 02:19 18 03/19/18 00:00 98.0 70 18 154/88 (110) 97 03/18/18 20:00 76 03/18/18 20:00 98.2 78 18 163/95 (117) 96 03/18/18 16:00 98.0 80 16 157/94 (115) 95 03/18/18 15:25 82 03/18/18 12:00 98.0 71 16 152/91 (111) 96 03/18/18 11:31 71 I/O 03/18/18 03/18/18 03/18/18 03/19/18 03/19/18 03/19/18 07:00 15:00 23:00 07:00 15:00 23:00 Intake Total 1000 ml 1000 ml 575 ml 480 ml Output Total 700 ml 750 ml 200 ml Balance 300 ml 1000 ml -175 ml 280 ml Intake Oral 575 ml 480 ml IV Total 1000 ml 1000 ml Output Urine Total 700 ml 750 ml 200 ml # Voids 3 3 # Bowel Movements 3 2 1 Result Diagram: 03/17/18 0330 03/17/18 0330 Imaging Last Impressions Carotid Artery Ultrasound 03/18/18 0000 Signed Impressions: CONCLUSION: Mild plaque formation without hemodynamically significant stenosis. Brain MRI 03/17/18 0000 Signed Impressions: CONCLUSION: 1. 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 2. Moderate chronic ischemic white matter changes 3. No evidence of acute infarct, mass, edema or hemorrhage. 4. Opacified left maxillary sinus. Head CT 03/16/181738 Signed Impressions: CONCLUSION: 1. No acute intracranial findings. Chest X-Ray 03/16/181738 Signed Impressions: CONCLUSION: Negative examination. Objective Remarks GENERAL: male lying in bed, sleeping CARDIOVASCULAR: Regular rate and rhythm without murmurs, gallops, or rubs. RESPIRATORY: Clear to auscultation. Breath sounds equal bilaterally. No wheezes , rales, or rhonchi. GASTROINTESTINAL: Abdomen soft, non-tender, nondistended. No hepato-splenomegaly , or palpable masses. No guarding. MUSCULOSKELETAL: Extremities without clubbing, cyanosis, or edema. No joint tenderness, effusion, or edema noted. No calf tenderness. NEUROLOGICAL: More awake and alert. Pleasantly confused. Oriented only to self. Believes he is in [place] and at [place] is the president. Moves all 4 extremities spontaneously. A/P Assessment and Plan Acute encephalopathy 2/2 staph bacteremia. Encephalopathy resolving however per family the patient is not at baseline. Unclear etiology, may be infectious in nature Head CT negative for acute process Brain MRI reviewed encephalomalacia, old temporal occipital and cerebellar strokes. We will consult neurology for altered mental status and aphasia Ammonia level slightly elevated. Start lactulose IVF NS +20 KCl at 125 cc/hour. Monitor lytes Consult PT/OT/speech therapy. Do cognitive evaluation [place] neuro Do EEG Check b12 and tSH Appreciate neurology recommendations Bacteremia Consult ID UA with rare bacteria bladder distention Urine culture negative Patient with history of recent UTI Start Vancomycin IV. DC Rocephin Hypokalemia Status post p.o./IV repletion Monitor BMP. Monitor and replace as need. CHRIS IV fluid hydration Monitor renal function Avoid nephrotoxic agents Diabetes mellitus type 2 Holding home metformin Sliding-scale insulin Monitor blood glucose Hypertension Clonidine as needed M. Patient smokes approximately 1 pack/day. Counselled. Nicotine patch. DVT ppx: Heparin Discussed with the patient, nurse. Discussed with family last night 03/17/18. Patient lives alone. Family [place] considering [place] if patient does agree. Gladys Win MD Mar 19, 2018 09:31
--- NOTE | 2018-03-19 09:59 | HHI.PR ---
Review/Management Diagnosis/Plan: (1) Altered mental status ICD Codes: R41.82 - Altered mental status, unspecified Status: Acute Plan: MRI brain scan reviewed. No acute stroke. Old right cerebellar stroke. Old right temporoparietal stroke. Atrophy mild to moderate periventricular white matter changes appreciated Mental status appears improved Question etiology of fever which has resolved; does not appear to have any [employer] encephalitis at present Recommendations EEG pending Little more confused this morning. This may be his baseline He is afebrile without leukocytosis however if this is a change from his baseline mentation an LP should be considered. This is discussed with infectious disease service they will also look over the patient and give their input May have some mild vascular cognitive impairment. Patient should not drive further workup in the outpatient setting (2) Chronic arterial ischemic stroke ICD Codes: I69.30 - Unspecified sequelae of cerebral infarction Status: Chronic Plan: Aspirin, tobacco cessation Carotid ultrasound mild plaque Lipids in range overall B12 TSH normal (3) SIRS (systemic inflammatory response syndrome) ICD Codes: R65.10 - Systemic inflammatory response syndrome (SIRS) of non- infectious origin without acute organ dysfunction Status: Acute Plan: Problem medical Sirs resolved (4) Acute kidney injury ICD Codes: N17.9 - Acute kidney failure, unspecified Status: Acute Plan: Medical following Subjective Subjective Comments No acute events reported No headache No chest pain No dyspnea Active Medications Current Medications Medications (Trade) Dose Ordered Sig/Ronald Route Start Time Stop Time Status Last Admin Potassium Chloride/Sodium Chloride 1,000 ml @ 125 mls/hr Q8H IV 03/16/18 23:15 03/19/18 08:12 (NS Flush) 2 ml UNSCH PRN IV FLUSH 03/16/18 23:15 (NS Flush) 2 ml BID IV FLUSH 03/17/18 09:00 03/18/18 21:05 (Tylenol) 650 mg Q4H PRN PO 03/16/18 23:15 03/19/18 01:19 (Zofran Inj) 4 mg Q6H PRN IVP 03/16/18 23:15 (Heparin Inj) 5,000 units Q8HR SQ 03/17/18 06:00 03/19/18 06:28 (Narcan Inj) 0.4 mg UNSCH PRN IV PUSH 03/16/18 23:15 (Maria Luisa-Colace) 1 tab BID PO 03/17/18 09:00 03/17/18 22:03 (Milk Of Magnesia Liq) 30 ml Q12H PRN PO 03/16/18 23:15 (Senokot) 17.2 mg Q12H PRN PO 03/16/18 23:15 (Dulcolax Supp) 10 mg DAILY PRN RECTAL 03/16/18 23:15 (D50w (Vial) Inj) 50 ml UNSCH PRN IV PUSH 03/17/18 00:15 (Glucagon Inj) 1 mg UNSCH PRN OTHER 03/17/18 00:15 (NovoLOG SUPPLEMENTAL SCALE) 1 ACHS SLIDING SCALE SQ 03/17/18 08:00 (Habitrol 21 Mg Patch.24 Hr) 1 patch DAILY T-DERMAL 03/17/18 19:30 03/18/18 08:22 Miscellaneous Information 1 HS T-DERMAL 03/17/18 21:00 03/18/18 21:00 (Diovan) 160 mg DAILY PO 03/18/18 09:00 03/18/18 08:22 (Microzide) 12.5 mg DAILY PO 03/18/18 09:00 03/18/18 08:22 (Lactulose Liq) 30 ml QID PRN PO 03/18/18 15:15 Pharmacy Profile Note 0 ml @ 0 mls/hr UNSCH OTHER 03/18/18 15:30 Vancomycin HCl 1500 mg/Sodium Chloride 515 ml @ 257.5 mls/ hr Q24H IV 03/18/18 18:00 03/18/18 17:47 [place] [place] Info) SPECIFIC LAB TO BE ... ONCE ONCE .XX 03/21/18 17:45 03/21/18 17:46 (Ecotrin Ec) 81 mg DAILY PO 03/18/18 18:45 03/18/18 18:47 Allergies Allergies Coded Allergies Sulfa (Sulfonamide Antibiotics) (Unverified Adverse Reaction, Intermediate, Rash, 03/16/18) Review of Systems All other ROS: ROS reviewed as documented in chart Exam I&O / VS Vital Signs Date Time Temp Pulse Resp B/P (MAP) Pulse Ox O2 Delivery O2 Flow Rate FiO2 03/19/18 04:07 59 03/19/18 04:00 98.2 65 18 160/81 (107) 96 03/19/18 02:19 18 03/19/18 00:00 98.0 70 18 154/88 (110) 97 03/18/18 20:00 76 03/18/18 20:00 98.2 78 18 163/95 (117) 96 03/18/18 16:00 98.0 80 16 157/94 (115) 95 03/18/18 15:25 82 03/18/18 12:00 98.0 71 16 152/91 (111) 96 03/18/18 11:31 71 General: Alert and Oriented, No acute distress Eye: EOMI Respiratory: Non-labored respirations Neurologic: Alert, Oriented, Normal sensory, Normal motor, No focal defects, CN II-XII intact, Normal DTR's Psychiatric: Cooperative, Appropriate mood & affect Exam Comments Awake alert oriented to little disoriented to date. Thinks he may have saw me yesterday evening but not certain. Not quite certain if he saw his family yesterday. Otherwise, and appropriate. Impaired short-term memory. Neck was supple. Able name simple objects, extraocular was intact visual nevarez full tongue midline no pronator drift L to keep all 4 extremities gravity for greater than 5 seconds reflex symmetric gait not assessed secondary potential fall risk Objective Micro and Labs Laboratory Tests Test 03/18/18 20:17 Erythrocyte Sedimentation Rate 18 Triglycerides Level 151 Cholesterol Level 120 LDL Cholesterol 67 HDL Cholesterol 22.8 Cholesterol/HDL Ratio 5.26 Vitamin B12 Level 326 Thyroid Stimulating Hormone 3rd Gen 1.050 Date/Time Source Procedure Growth Status 03/17/18 19:20 Blood Peripheral Aerobic Blood Culture - Preliminary NO GROWTH IN 1 DAY Resulted 03/17/18 19:20 Blood Peripheral Anaerobic Blood Culture - Preliminary NO GROWTH IN 1 DAY Resulted 03/16/18 19:40 Urine Catheterized Urine Urine Culture - Final NO GROWTH IN 48 HOURS. Complete Oziel Mao MD Mar 19, 2018 09:59
[2018-03-19 10:13] LABS: AUTOMATED NEUTROPHIL # 4.3 TH/MM3 (1.8-7.7); BASOPHIL % 0.5 % (0.0-2.0); EOSINOPHIL # 0.1 TH/MM3 (0-0.4); EOSINOPHIL % 2.2 % (0.0-4.0); HEMATOCRIT 37.3 % (39.0-51.0); HEMOGLOBIN 12.9 GM/DL (13.0-17.0); LYMPH % 16.8 % (9.0-44.0); MEAN CELL VOLUME 93.1 FL (80.0-100.0); MEAN CORPUSCULAR HEMOGLOBIN 32.3 PG (27.0-34.0); MEAN CORPUSCULAR HGB CONC 34.7 % (32.0-36.0); MEAN PLATELET VOLUME 8.1 FL (7.0-11.0); MONO % 7.8 % (0.0-8.0); MONOCYTE # 0.5 TH/MM3 (0-0.9); NEUT % 72.7 % (16.0-70.0); PLATELET COUNT 163 TH/MM3 (150-450); RED CELL DISTRIBUTION WIDTH 13.5 % (11.6-17.2); WHITE BLOOD COUNT 5.9 TH/MM3 (4.0-11.0)
[2018-03-19 10:32] LABS: BICARBONATE 19.2 MEQ/L (21.0-32.0); CALCIUM 8.5 MG/DL (8.5-10.1); CREATININE 0.84 MG/DL (0.60-1.30); MAGNESIUM 1.9 MG/DL (1.5-2.5)
[2018-03-19] MEDS: DOCUSATE SODIUM 50 MG/SENNA 8.6 MG TAB PO SCH ×2 (11:01→20:53)
[2018-03-19] MEDS: VALSARTAN 160 MG TAB PO SCH (11:01)
[2018-03-19] MEDS: HYDROCHLOROTHIAZIDE 12.5 MG CAP PO SCH (11:02)
[2018-03-19] MEDS: NICOTINE 21 MG/24 HR PATCH T-DERMAL SCH (11:04)
--- NOTE | 2018-03-19 13:22 | HHI.IDPN ---
Subjective Subjective Remarks pt is about the same. Fully awake and alert. Oriented x 3, but has recollection deficits Afebriel Antibiotics vancomycin Allergies: Coded Allergies: Sulfa (Sulfonamide Antibiotics) (Unverified Adverse Reaction, Intermediate , Rash, 03/16/18) Objective . Vital Signs Date Time Temp Pulse Resp B/P (MAP) Pulse Ox O2 Delivery O2 Flow Rate FiO2 03/19/18 08:00 97.7 69 18 166/107 (126) 97 03/19/18 04:07 59 03/19/18 04:00 98.2 65 18 160/81 (107) 96 03/19/18 02:19 18 03/19/18 00:00 98.0 70 18 154/88 (110) 97 03/18/18 20:00 76 03/18/18 20:00 98.2 78 18 163/95 (117) 96 03/18/18 16:00 98.0 80 16 157/94 (115) 95 03/18/18 15:25 82 . Laboratory Tests Test 03/18/18 20:17 03/19/18 09:45 Erythrocyte Sedimentation Rate 18 mm/hr White Blood Count 5.9 TH/MM3 Red Blood Count 4.00 MIL/MM3 Hemoglobin 12.9 GM/DL Hematocrit 37.3 % Mean Corpuscular Volume 93.1 FL Mean Corpuscular Hemoglobin 32.3 PG Mean Corpuscular Hemoglobin Concent 34.7 % Red Cell Distribution Width 13.5 % Platelet Count 163 TH/MM3 Mean Platelet Volume 8.1 FL Neutrophils (%) (Auto) 72.7 % Lymphocytes (%) (Auto) 16.8 % Monocytes (%) (Auto) 7.8 % Eosinophils (%) (Auto) 2.2 % Basophils (%) (Auto) 0.5 % Neutrophils # (Auto) 4.3 TH/MM3 Lymphocytes # (Auto) 1.0 TH/MM3 Monocytes # (Auto) 0.5 TH/MM3 Eosinophils # (Auto) 0.1 TH/MM3 Basophils # (Auto) 0.0 TH/MM3 CBC Comment DIFF FINAL Differential Comment Laboratory Tests Test 03/18/18 20:17 03/19/18 09:45 Triglycerides Level 151 MG/DL Cholesterol Level 120 MG/DL LDL Cholesterol 67 MG/DL HDL Cholesterol 22.8 MG/DL Cholesterol/HDL Ratio 5.26 RATIO Vitamin B12 Level 326 PG/ML Thyroid Stimulating Hormone 3rd Gen 1.050 uIU/ML Blood Urea Nitrogen 6 MG/DL Creatinine 0.84 MG/DL Random Glucose 77 MG/DL Calcium Level 8.5 MG/DL Magnesium Level 1.9 MG/DL Sodium Level 141 MEQ/L Potassium Level 3.6 MEQ/L Chloride Level 109 MEQ/L Carbon Dioxide Level 19.2 MEQ/L Anion Gap 13 MEQ/L Estimat Glomerular Filtration Rate 90 ML/MIN Ammonia 63 MCMOL/L Microbiology Date/Time Source Procedure Growth Status 03/17/18 19:20 Blood Peripheral Aerobic Blood Culture - Preliminary NO GROWTH IN 2 DAYS Resulted 03/17/18 19:20 Blood Peripheral Anaerobic Blood Culture - Preliminary NO GROWTH IN 2 DAYS Resulted 03/17/18 19:15 Blood Peripheral Aerobic Blood Culture - Preliminary NO GROWTH IN 2 DAYS Resulted 03/17/18 19:15 Blood Peripheral Anaerobic Blood Culture - Preliminary NO GROWTH IN 2 DAYS Resulted 03/16/18 17:52 Blood Peripheral Aerobic Blood Culture - Preliminary Staphylococcus Species Resulted 03/16/18 17:52 Anaerobic Blood Culture - Preliminary Staph Sp Coagulase Negative Resulted 03/16/18 17:47 Blood Peripheral Aerobic Blood Culture - Preliminary NO GROWTH IN 3 DAYS Resulted 03/16/18 17:47 Blood Peripheral Anaerobic Blood Culture - Preliminary NO GROWTH IN 3 DAYS Resulted 03/16/18 19:40 Urine Catheterized Urine Urine Culture - Final NO GROWTH IN 48 HOURS. Complete Imaging Last Impressions Carotid Artery Ultrasound 03/18/18 0000 Signed Impressions: CONCLUSION: Mild plaque formation without hemodynamically significant stenosis. Brain MRI 03/17/18 Signed Impressions: CONCLUSION: 1. 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 2. Moderate chronic ischemic white matter changes 3. No evidence of acute infarct, mass, edema or hemorrhage. 4. Opacified left maxillary sinus. Head CT 03/16/181738 Signed Impressions: CONCLUSION: 1. No acute intracranial findings. Chest X-Ray 03/16/181738 Signed Impressions: CONCLUSION: Negative examination. Physical Exam CONSTITUTIONAL/GENERAL: This is an adequately nourished patient, in no apparent distress. TUBES/LINES/DRAINS: SKIN: No jaundice, rashes, or lesions HEAD: Atraumatic. Normocephalic. EYES: Pupils equal and round and reactive. Extraocular motions intact. No scleral icterus. No injection or drainage. Fundi not examined. ENT: Hearing grossly normal. Nose without bleeding or purulent drainage. Throat without visible erythema, exudates, masses, or lesions. NECK: Trachea midline. Supple, nontender. CARDIOVASCULAR: Regular rate and rhythm without murmurs, gallops, or rubs. No JVD. Peripheral pulses symmetric. RESPIRATORY/CHEST: Symmetric, unlabored respirations. Clear to auscultation. Breath sounds equal bilaterally. No wheezes, rales, or rhonchi. GASTROINTESTINAL: Abdomen soft, non-tender, nondistended. No hepato-splenomegaly , or palpable masses. No guarding. Bowel sounds present. MUSCULOSKELETAL: Extremities without clubbing, cyanosis, or edema. No joint tenderness or effusion noted. No calf tenderness. No mottling or clubbing. NEUROLOGICAL: Awake and alert. Motor and sensory grossly within normal limits. Follows commands. Mildly confused, recollection deficit is obvious, but speech is clear and coherent. Moves all extremities. MS unchanged sincve yday PSYCHIATRIC: No obvious anxiety/depression. no apparent hallucinations or other psychotic thought process. Assessment & Plan Remarks Mental status change and fever ? from staph sepsis Staph bactremia., coag- negative staph ? clinical significance Hematuria, but no e/o UTI cont vancomycin for now w/u hematuria w/u for dementia No clinical e/o meningitjs dw Quirino Medina,Talita Perez MD Mar 19, 2018 13:21
[2018-03-19 15:18] LABS: HEMOGLOBIN A1C 5.5 % (4.3-6.0)
[2018-03-19] MEDS: VANCOMYCIN INJ 1,500 MG in SODIUM CHLORID 0.9% 500 ML INJ 500 ML IV SCH (17:32)
[2018-03-19] MEDS ORDERED: HALOPERIDOL LACTATE 5 MG/ML AMP IV PUSH PRN (18:45)
[2018-03-19] MEDS: QUEtiapine FUMARATE 25 MG TAB PO SCH (20:53)
[2018-03-19] MEDS: LACTULOSE SYRUP 20 GM/30 ML CUP PO SCH (20:54)
[2018-03-19] MEDS: REMOVE OLD NICOTINE PATCH T-DERMAL SCH (21:00)
--- NOTE | 2018-03-19 21:13 | MG ---
cc: Oziel Mao MD, Mandeep MD EEG NUMBER [id number] Theta beta frequencies in posterior channels, 20 microvolts. Good EEG variability reactivity. Reduced driving with photic stimulation, Single lead EKG showing sinus rhythm. INTERPRETATION: Minimal encephalopathy. Clinical correlation. MD DARIEL Hurley/ , 08:54 PM , 09:12 PM
[2018-03-20] VITALS (11 sets, daily range): BP systolic 128–176; BP diastolic 75–88; PULSE 70–87; RESP 18–20; TEMP 97.4–98.4; O2SAT 95–97
[2018-03-20] MEDS: HEPARIN SODIUM - SQ 10,000 UNITS/ML VIAL SQ SCH ×3 (06:00→20:27)
[2018-03-20] MEDS: NS + KCL 20 MEQ INJ 1,000 ML IV SCH ×3 (06:17→23:15)
[2018-03-20] MEDS: INSULIN ASPART SUPPLEMENTAL SCALE SQ SCH ×4 (08:00→20:08)
[2018-03-20] MEDS: DOCUSATE SODIUM 50 MG/SENNA 8.6 MG TAB PO SCH ×2 (08:48→20:27)
[2018-03-20] MEDS: VALSARTAN 160 MG TAB PO SCH (08:48)
[2018-03-20] MEDS: HYDROCHLOROTHIAZIDE 12.5 MG CAP PO SCH (08:48)
[2018-03-20] MEDS: ACETAMINOPHEN 325 MG TAB PO PRN (08:49)
[2018-03-20] MEDS: SODIUM CHLORIDE 0.9% FLUSH 10 ML FLUSH IV FLUSH SCH ×2 (08:49→20:27)
[2018-03-20] MEDS: NICOTINE 21 MG/24 HR PATCH T-DERMAL SCH (08:49)
[2018-03-20] MEDS: LACTULOSE SYRUP 20 GM/30 ML CUP PO SCH ×4 (09:00→20:27)
[2018-03-20] MEDS: ASPIRIN EC 81 MG TABEC PO SCH (09:00)
--- NOTE | 2018-03-20 10:36 | HHI.PR ---
Review/Management Diagnosis/Plan: (1) Altered mental status ICD Codes: R41.82 - Altered mental status, unspecified Status: Acute Plan: MRI brain scan reviewed. No acute stroke. Old right cerebellar stroke. Old right temporoparietal stroke. 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 This may be contributing to his mental status. Check hepatitis panel EEG with very minimal encephalopathy no seizure activity Discussed the patient's children at bedside. They state he has been confused over the past several months. In fact they have been looking to try to get him placement closer to his son lives in [facility]. We discussed we could obtain a lumbar puncture for further evaluation the children and patient currently declined that. 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 Patient should not drive further workup in the outpatient setting (2) Chronic arterial ischemic stroke ICD Codes: I69.30 - Unspecified sequelae of cerebral infarction Status: Chronic Plan: Aspirin, tobacco cessation Carotid ultrasound mild plaque Lipids in range overall B12 TSH normal (3) SIRS (systemic inflammatory response syndrome) ICD Codes: R65.10 - Systemic inflammatory response syndrome (SIRS) of non- infectious origin without acute organ dysfunction Status: Acute Plan: Problem medical Sirs resolved (4) Acute kidney injury ICD Codes: N17.9 - Acute kidney failure, unspecified Status: Acute Plan: Medical following Subjective Subjective Comments No acute events reported No headache No chest pain No dyspnea Active Medications Current Medications Medications (Trade) Dose Ordered Sig/Ronald Route Start Time Stop Time Status Last Admin Potassium Chloride/Sodium Chloride 1,000 ml @ 125 mls/hr Q8H IV 03/16/18 23:15 03/20/18 06:17 (NS Flush) 2 ml UNSCH PRN IV FLUSH 03/16/18 23:15 (NS Flush) 2 ml BID IV FLUSH 03/17/18 09:00 03/18/18 21:05 (Tylenol) 650 mg Q4H PRN PO 03/16/18 23:15 03/20/18 08:49 (Zofran Inj) 4 mg Q6H PRN IVP 03/16/18 23:15 (Heparin Inj) 5,000 units Q8HR SQ 03/17/18 06:00 03/20/18 06:00 (Narcan Inj) 0.4 mg UNSCH PRN IV PUSH 03/16/18 23:15 (Maria Luisa-Colace) 1 tab BID PO 03/17/18 09:00 03/20/18 08:48 (Milk Of Magnesia Liq) 30 ml Q12H PRN PO 03/16/18 23:15 (Senokot) 17.2 mg Q12H PRN PO 03/16/18 23:15 (Dulcolax Supp) 10 mg DAILY PRN RECTAL 03/16/18 23:15 (D50w (Vial) Inj) 50 ml UNSCH PRN IV PUSH 03/17/18 00:15 (Glucagon Inj) 1 mg UNSCH PRN OTHER 03/17/18 00:15 (NovoLOG SUPPLEMENTAL SCALE) 1 ACHS SLIDING SCALE SQ 03/17/18 08:00 (Habitrol 21 Mg Patch.24 Hr) 1 patch DAILY T-DERMAL 03/17/18 19:30 03/20/18 08:49 Miscellaneous Information 1 HS T-DERMAL 03/17/18 21:00 03/19/18 21:00 (Diovan) 160 mg DAILY PO 03/18/18 09:00 03/20/18 08:48 (Microzide) 12.5 mg DAILY PO 03/18/18 09:00 03/20/18 08:48 Pharmacy Profile Note 0 ml @ 0 mls/hr UNSCH OTHER 03/18/18 15:30 Vancomycin HCl 1500 mg/Sodium Chloride 515 ml @ 257.5 mls/ hr Q24H IV 03/18/18 18:00 03/19/18 17:32 ([facility] Ordered Lab Info) SPECIFIC LAB TO BE FLORI... ONCE ONCE .XX 03/21/18 17:45 03/21/18 17:46 (Ecotrin Ec) 81 mg DAILY PO 03/18/18 18:45 03/18/18 18:47 (Haldol Inj) 2 mg Q6HR PRN IV PUSH 03/19/18 18:45 (SEROquel) 25 mg HS PO 03/19/18 21:00 03/19/18 20:53 (Lactulose Liq) 30 ml QID PO 03/19/18 21:00 03/19/18 20:54 Allergies Allergies Coded Allergies Sulfa (Sulfonamide Antibiotics) (Unverified Adverse Reaction, Intermediate, Rash, 03/16/18) Review of Systems All other ROS: ROS reviewed as documented in chart Exam I&O / VS Vital Signs Date Time Temp Pulse Resp B/P (MAP) Pulse Ox O2 Delivery O2 Flow Rate FiO2 03/20/18 07:50 97.4 74 20 176/75 (108) 96 03/20/18 07:19 Room Air 03/20/18 04:00 97.5 80 18 176/88 (117) 97 03/20/18 03:42 70 03/20/18 00:00 97.5 80 18 163/88 (113) 97 03/19/18 20:00 98.4 78 18 138/83 (101) 96 03/19/18 20:00 Room Air 03/19/18 16:00 98.4 80 18 143/83 (103) 98 03/19/18 12:00 98.0 74 18 111/85 (94) 96 General: Alert and Oriented, No acute distress Eye: EOMI Respiratory: Non-labored respirations Neurologic: Alert, Oriented, Normal sensory, Normal motor, No focal defects, CN II-XII intact, Normal DTR's Psychiatric: Cooperative, Appropriate mood & affect Exam Comments Awake alert oriented 2. Not to date entirely. Pleasant, able name simple objects. Impaired short-term memory. Neck was supple. Able name simple objects, extraocular was intact visual nevarez full tongue midline no pronator drift L to keep all 4 extremities gravity for greater than 5 seconds reflex symmetric gait not assessed secondary potential fall risk Objective Micro and Labs Date/Time Source Procedure Growth Status 03/17/18 19:20 Blood Peripheral Aerobic Blood Culture - Preliminary NO GROWTH IN 2 DAYS Resulted 03/17/18 19:20 Blood Peripheral Anaerobic Blood Culture - Preliminary NO GROWTH IN 2 DAYS Resulted 03/16/18 19:40 Urine Catheterized Urine Urine Culture - Final NO GROWTH IN 48 HOURS. Complete Oziel Mao MD Mar 20, 2018 10:36
--- NOTE | 2018-03-20 14:20 | HHI.PR ---
Subjective Remarks The patient is in bed at this time he appears in not acute distress. He is however noted agitated during the night and he was also agitated during the morning. He is calling his family to come pick him up. He is with very poor insight and judgment. Pleasantly confused at this time. Knows his name and date of . Recalls memories in the past but not recent memories today. No motor deficit. He is swallowing well. Objective Vitals Vital Signs Date Time Temp Pulse Resp B/P (MAP) Pulse Ox O2 Delivery O2 Flow Rate FiO2 03/20/18 11:50 97.4 81 20 128/76 (93) 97 03/20/18 07:50 97.4 74 20 176/75 (108) 96 03/20/18 07:19 Room Air 03/20/18 04:00 97.5 80 18 176/88 (117) 97 03/20/18 03:42 70 03/20/18 00:00 97.5 80 18 163/88 (113) 97 03/19/18 20:00 98.4 78 18 138/83 (101) 96 03/19/18 20:00 Room Air 03/19/18 16:00 98.4 80 18 143/83 (103) 98 I/O 03/19/18 03/19/18 03/19/18 03/20/18 03/20/18 03/20/18 07:00 15:00 23:00 07:00 15:00 23:00 Intake Total 480 ml 600 ml 1041 ml Output Total 200 ml 700 ml Balance 280 ml 600 ml 341 ml Intake Oral 480 ml 600 ml 480 ml IV Total 561 ml Output Urine Total 200 ml 700 ml # Voids 3 3 # Bowel Movements 1 2 Result Diagram: 03/19/18 0945 03/19/18 0945 Imaging Last Impressions Carotid Artery Ultrasound 03/18/18 0000 Signed Impressions: CONCLUSION: Mild plaque formation without hemodynamically significant stenosis. Brain MRI 03/17/18 0000 Signed Impressions: CONCLUSION: 1. 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 2. Moderate chronic ischemic white matter changes 3. No evidence of acute infarct, mass, edema or hemorrhage. 4. Opacified left maxillary sinus. Head CT 03/16/18 9334 Signed Impressions: CONCLUSION: 1. No acute intracranial findings. Chest X-Ray 03/16/18 1691 Signed Impressions: CONCLUSION: Negative examination. Objective Remarks GENERAL: male lying in bed, sleeping CARDIOVASCULAR: Regular rate and rhythm without murmurs, gallops, or rubs. RESPIRATORY: Clear to auscultation. Breath sounds equal bilaterally. No wheezes , rales, or rhonchi. GASTROINTESTINAL: Abdomen soft, non-tender, nondistended. No hepato-splenomegaly , or palpable masses. No guarding. MUSCULOSKELETAL: Extremities without clubbing, cyanosis, or edema. No joint tenderness, effusion, or edema noted. No calf tenderness. NEUROLOGICAL: More awake and alert. Pleasantly confused. Oriented only to self. Believes he is in [place] and at [place] is the president. Moves all 4 extremities spontaneously. A/P Assessment and Plan Acute encephalopathy 2/2 staph bacteremia. Encephalopathy resolving however per family the patient is not at baseline. Unclear etiology, may be infectious in nature Head CT negative for acute process Brain MRI reviewed encephalomalacia, old temporal occipital and cerebellar strokes. We will consult neurology for altered mental status and aphasia Ammonia level slightly elevated. Start lactulose IVF NS +20 KCl at 125 cc/hour. Monitor lytes Consult PT/OT/speech therapy. Do cognitive evaluation [place] neuro Do EEG Check b12 and tSH Appreciate neurology recommendations Bacteremia with staph aureus Consult ID UA with rare bacteria bladder distention Urine culture negative Patient with history of recent UTI Start Vancomycin IV. DC Rocephin Hypokalemia Status post p.o./IV repletion Monitor BMP. Monitor and replace as need. CHRIS IV fluid hydration Monitor renal function Avoid nephrotoxic agents Diabetes mellitus type 2 Holding home metformin Sliding-scale insulin Monitor blood glucose Hypertension Clonidine as needed Tobaccoism. Patient smokes approximately 1 pack/day. Counselled. Nicotine patch. DVT ppx: Heparin Discussed with the patient, nurse. Discussed with family last night 03/17/18. Patient lives alone. Family is considering [place] the [place] if patient does agree. Gladys Win MD Mar 20, 2018 14:20
[2018-03-20] MEDS ORDERED: ECASA81 PO (14:55)
[2018-03-20] MEDS ORDERED: SERO25TA PO (14:55)
[2018-03-20] MEDS ORDERED: METF500T4 PO (14:55)
[2018-03-20] MEDS ORDERED: VALS160T4 PO (14:55)
[2018-03-20] MEDS ORDERED: NICO21DI25 T-DERMAL (14:55)
[2018-03-20] MEDS ORDERED: MEMA1TAB PO (14:56)
[2018-03-20] MEDS ORDERED: NORC5TAB PO (14:56)
[2018-03-20] MEDS ORDERED: LORA-392 PO (14:57)
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
[2018-03-20] MEDS ORDERED: SIMV10TA PO (15:07)
[2018-03-20] MEDS ORDERED: ZIPRASIDONE MESYLATE 20 MG VIAL IM SCH (15:15)
[2018-03-20] MEDS: MEMANTINE HCL 5 MG TAB PO SCH (17:56)
[2018-03-20] MEDS: VANCOMYCIN INJ 1,500 MG in SODIUM CHLORID 0.9% 500 ML INJ 500 ML IV SCH (17:56)
[2018-03-20] MEDS: QUEtiapine FUMARATE 25 MG TAB PO SCH (20:27)
[2018-03-20] MEDS: REMOVE OLD NICOTINE PATCH T-DERMAL SCH (20:30)
[2018-03-21] VITALS (10 sets, daily range): BP systolic 146–171; BP diastolic 70–91; PULSE 72–94; RESP 18–20; TEMP 97.2–98.5; O2SAT 97–99
[2018-03-21] MEDS: HEPARIN SODIUM - SQ 10,000 UNITS/ML VIAL SQ SCH (06:00)
[2018-03-21] MEDS: NS + KCL 20 MEQ INJ 1,000 ML IV SCH (06:05)
[2018-03-21 06:15] LABS: AUTOMATED NEUTROPHIL # 3.6 TH/MM3 (1.8-7.7); BASOPHIL % 0.6 % (0.0-2.0); EOSINOPHIL # 0.2 TH/MM3 (0-0.4); HEMOGLOBIN 13.5 GM/DL (13.0-17.0); LYMPH % 26.6 % (9.0-44.0); LYMPHOCYTE # 1.6 TH/MM3 (1.0-4.8); MEAN CELL VOLUME 92.5 FL (80.0-100.0); MEAN CORPUSCULAR HGB CONC 34.6 % (32.0-36.0); MEAN PLATELET VOLUME 8.3 FL (7.0-11.0); MONO % 8.7 % (0.0-8.0); MONOCYTE # 0.5 TH/MM3 (0-0.9); NEUT % 61.1 % (16.0-70.0); PLATELET COUNT 196 TH/MM3 (150-450); RED BLOOD COUNT 4.22 MIL/MM3 (4.50-5.90); RED CELL DISTRIBUTION WIDTH 13.3 % (11.6-17.2); WHITE BLOOD COUNT 5.9 TH/MM3 (4.0-11.0)
[2018-03-21 06:24] LABS: BICARBONATE 21.4 MEQ/L (21.0-32.0); CALCIUM 8.5 MG/DL (8.5-10.1); CREATININE 0.85 MG/DL (0.60-1.30)
[2018-03-21] MEDS: INSULIN ASPART SUPPLEMENTAL SCALE SQ SCH ×2 (08:00→12:00)
[2018-03-21] MEDS: ASPIRIN EC 81 MG TABEC PO SCH (08:59)
[2018-03-21] MEDS: LACTULOSE SYRUP 20 GM/30 ML CUP PO SCH ×2 (08:59→13:00)
[2018-03-21] MEDS: MEMANTINE HCL 5 MG TAB PO SCH (08:59)
[2018-03-21] MEDS: DOCUSATE SODIUM 50 MG/SENNA 8.6 MG TAB PO SCH (08:59)
[2018-03-21] MEDS: HYDROCHLOROTHIAZIDE 12.5 MG CAP PO SCH (08:59)
[2018-03-21] MEDS: VALSARTAN 160 MG TAB PO SCH (08:59)
[2018-03-21] MEDS: NICOTINE 21 MG/24 HR PATCH T-DERMAL SCH (08:59)
[2018-03-21] MEDS: SODIUM CHLORIDE 0.9% FLUSH 10 ML FLUSH IV FLUSH SCH (09:00)
--- NOTE | 2018-03-21 09:23 | HHI.PR ---
Review/Management Diagnosis/Plan: (1) Altered mental status ICD Codes: R41.82 - Altered mental status, unspecified Status: Acute Plan: MRI brain scan reviewed. No acute stroke. Old right cerebellar stroke. Old right temporoparietal stroke. 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 This may be contributing to his mental status. 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 Patient should not drive further workup in the outpatient setting (2) Chronic arterial ischemic stroke ICD Codes: I69.30 - Unspecified sequelae of cerebral infarction Status: Chronic Plan: Aspirin, tobacco cessation Carotid ultrasound mild plaque Lipids in range overall B12 TSH normal (3) SIRS (systemic inflammatory response syndrome) ICD Codes: R65.10 - Systemic inflammatory response syndrome (SIRS) of non- infectious origin without acute organ dysfunction Status: Acute Plan: Problem medical Sirs resolved (4) Acute kidney injury ICD Codes: N17.9 - Acute kidney failure, unspecified Status: Acute Plan: Medical following Subjective Subjective Comments No acute events reported No headache No chest pain No dyspnea Active Medications Current Medications Medications (Trade) Dose Ordered Sig/Ronald Route Start Time Stop Time Status Last Admin Potassium Chloride/Sodium Chloride 1,000 ml @ 125 mls/hr Q8H IV 03/16/18 23:15 03/21/18 06:05 (NS Flush) 2 ml UNSCH PRN IV FLUSH 03/16/18 23:15 (NS Flush) 2 ml BID IV FLUSH 03/17/18 09:00 03/20/18 20:27 (Tylenol) 650 mg Q4H PRN PO 03/16/18 23:15 03/20/18 08:49 (Zofran Inj) 4 mg Q6H PRN IVP 03/16/18 23:15 (Heparin Inj) 5,000 units Q8HR SQ 03/17/18 06:00 03/21/18 06:00 (Narcan Inj) 0.4 mg UNSCH PRN IV PUSH 03/16/18 23:15 (Maria Luisa-Colace) 1 tab BID PO 03/17/18 09:00 03/21/18 08:59 (Milk Of Magnesia Liq) 30 ml Q12H PRN PO 03/16/18 23:15 (Senokot) 17.2 mg Q12H PRN PO 03/16/18 23:15 (Dulcolax Supp) 10 mg DAILY PRN RECTAL 03/16/18 23:15 (D50w (Vial) Inj) 50 ml UNSCH PRN IV PUSH 03/17/18 00:15 (Glucagon Inj) 1 mg UNSCH PRN OTHER 03/17/18 00:15 (NovoLOG SUPPLEMENTAL SCALE) 1 ACHS SLIDING SCALE SQ 03/17/18 08:00 (Habitrol 21 Mg Patch.24 Hr) 1 patch DAILY T-DERMAL 03/17/18 19:30 03/21/18 08:59 Miscellaneous Information 1 HS T-DERMAL 03/17/18 21:00 03/20/18 20:30 (Diovan) 160 mg DAILY PO 03/18/18 09:00 03/21/18 08:59 (Microzide) 12.5 mg DAILY PO 03/18/18 09:00 03/21/18 08:59 Pharmacy Profile Note 0 ml @ 0 mls/hr UNSCH OTHER 03/18/18 15:30 Vancomycin HCl 1500 mg/Sodium Chloride 515 ml @ 257.5 mls/ hr Q24H IV 03/18/18 18:00 03/20/18 17:56 ([facility] Ordered Lab Info) SPECIFIC LAB TO BE FLORI... ONCE ONCE .XX 03/21/18 17:45 03/21/18 17:46 (Ecotrin Ec) 81 mg DAILY PO 03/18/18 18:45 03/21/18 08:59 (Haldol Inj) 2 mg Q6HR PRN IV PUSH 03/19/18 18:45 03/20/18 10:43 (SEROquel) 25 mg HS PO 03/19/18 21:00 03/20/18 20:27 (Lactulose Liq) 30 ml QID PO 03/19/18 21:00 03/21/18 08:59 (Namenda) 5 mg DAILY PO 03/20/18 16:00 03/21/18 08:59 Allergies Allergies Coded Allergies Sulfa (Sulfonamide Antibiotics) (Unverified Adverse Reaction, Intermediate, Rash, 03/16/18) Review of Systems All other ROS: ROS reviewed as documented in chart Exam I&O / VS Vital Signs Date Time Temp Pulse Resp B/P (MAP) Pulse Ox O2 Delivery O2 Flow Rate FiO2 03/21/18 04:00 Room Air 03/21/18 04:00 98.1 76 18 154/84 (107) 99 03/21/18 03:42 75 03/21/18 00:00 Room Air 03/21/18 00:00 98.5 72 18 164/86 (112) 99 03/20/18 23:40 73 03/20/18 20:00 98.2 80 18 155/80 (105) 95 03/20/18 20:00 Room Air 03/20/18 19:49 87 03/20/18 16:00 85 03/20/18 15:00 98.4 83 20 138/83 (101) 96 03/20/18 12:00 80 03/20/18 11:50 97.4 81 20 128/76 (93) 97 General: Alert and Oriented, No acute distress Eye: EOMI Respiratory: Non-labored respirations Neurologic: Alert, Oriented, Normal sensory, Normal motor, No focal defects, CN II-XII intact, Normal DTR's Psychiatric: Cooperative, Appropriate mood & affect Exam Comments Awake alert oriented 2. Not to date. Patient sitting up about to have breakfast pleasant, appropriate pleasant, able name simple objects. Impaired short-term memory. Neck was supple. Able name simple objects, extraocular was intact visual nevarez full tongue midline no pronator drift L to keep all 4 extremities gravity for greater than 5 seconds reflex symmetric gait not assessed secondary potential fall risk Objective Micro and Labs Laboratory Tests Test 03/20/18 13:29 03/21/18 05:33 Hepatitis A IgM Antibody NONREACTIVE Hepatitis B Surface Antigen NONREACTIVE Hepatitis B Core IgM Antibody NONREACTIVE Hepatitis C IgG Antibody NONREACTIVE White Blood Count 5.9 Red Blood Count 4.22 Hemoglobin 13.5 Hematocrit 39.0 Mean Corpuscular Volume 92.5 Mean Corpuscular Hemoglobin 32.0 Mean Corpuscular Hemoglobin Concent 34.6 Red Cell Distribution Width 13.3 Platelet Count 196 Mean Platelet Volume 8.3 Neutrophils (%) (Auto) 61.1 Lymphocytes (%) (Auto) 26.6 Monocytes (%) (Auto) 8.7 Eosinophils (%) (Auto) 3.0 Basophils (%) (Auto) 0.6 Neutrophils # (Auto) 3.6 Lymphocytes # (Auto) 1.6 Monocytes # (Auto) 0.5 Eosinophils # (Auto) 0.2 Basophils # (Auto) 0.0 CBC Comment DIFF FINAL Differential Comment Blood Urea Nitrogen 7 Creatinine 0.85 Random Glucose 77 Calcium Level 8.5 Magnesium Level 2.0 Sodium Level 144 Potassium Level 3.7 Chloride Level 112 Carbon Dioxide Level 21.4 Anion Gap 11 Estimat Glomerular Filtration Rate 89 Ammonia 25 Date/Time Source Procedure Growth Status 03/17/18 19:20 Blood Peripheral Aerobic Blood Culture - Preliminary NO GROWTH IN 3 DAYS Resulted 03/17/18 19:20 Blood Peripheral Anaerobic Blood Culture - Preliminary NO GROWTH IN 3 DAYS Resulted 03/16/18 19:40 Urine Catheterized Urine Urine Culture - Final NO GROWTH IN 48 HOURS. Complete Oziel Mao MD Mar 21, 2018 09:23
--- NOTE | 2018-03-21 12:04 | HHI.IDPN ---
Subjective Subjective Remarks Pt is fully alert, awake Same degreee of memory deficit no fever Just 1/4 positive blood clx with coag neg stapjh repeat blood clx negative Antibiotics vancomycin Allergies: Coded Allergies: Sulfa (Sulfonamide Antibiotics) (Unverified Adverse Reaction, Intermediate , Rash, 03/16/18) Objective . Vital Signs Date Time Temp Pulse Resp B/P (MAP) Pulse Ox O2 Delivery O2 Flow Rate FiO2 03/21/18 08:01 97.4 73 20 171/91 (117) 97 03/21/18 08:00 Room Air 03/21/18 07:46 74 03/21/18 04:00 Room Air 03/21/18 04:00 98.1 76 18 154/84 (107) 99 03/21/18 03:42 75 03/21/18 00:00 Room Air 03/21/18 00:00 98.5 72 18 164/86 (112) 99 03/20/18 23:40 73 03/20/18 20:00 98.2 80 18 155/80 (105) 95 03/20/18 20:00 Room Air 03/20/18 19:49 87 03/20/18 16:00 85 03/20/18 15:00 98.4 83 20 138/83 (101) 96 . Laboratory Tests Test 03/21/18 05:33 White Blood Count 5.9 TH/MM3 Red Blood Count 4.22 MIL/MM3 Hemoglobin 13.5 GM/DL Hematocrit 39.0 % Mean Corpuscular Volume 92.5 FL Mean Corpuscular Hemoglobin 32.0 PG Mean Corpuscular Hemoglobin Concent 34.6 % Red Cell Distribution Width 13.3 % Platelet Count 196 TH/MM3 Mean Platelet Volume 8.3 FL Neutrophils (%) (Auto) 61.1 % Lymphocytes (%) (Auto) 26.6 % Monocytes (%) (Auto) 8.7 % Eosinophils (%) (Auto) 3.0 % Basophils (%) (Auto) 0.6 % Neutrophils # (Auto) 3.6 TH/MM3 Lymphocytes # (Auto) 1.6 TH/MM3 Monocytes # (Auto) 0.5 TH/MM3 Eosinophils # (Auto) 0.2 TH/MM3 Basophils # (Auto) 0.0 TH/MM3 CBC Comment DIFF FINAL Differential Comment Laboratory Tests Test 03/21/18 05:33 Blood Urea Nitrogen 7 MG/DL Creatinine 0.85 MG/DL Random Glucose 77 MG/DL Calcium Level 8.5 MG/DL Magnesium Level 2.0 MG/DL Sodium Level 144 MEQ/L Potassium Level 3.7 MEQ/L Chloride Level 112 MEQ/L Carbon Dioxide Level 21.4 MEQ/L Anion Gap 11 MEQ/L Estimat Glomerular Filtration Rate 89 ML/MIN Ammonia 25 MCMOL/L Imaging Last Impressions Carotid Artery Ultrasound 03/18/18 0000 Signed Impressions: CONCLUSION: Mild plaque formation without hemodynamically significant stenosis. Brain MRI 03/17/18 0000 Signed Impressions: CONCLUSION: 1. 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 2. Moderate chronic ischemic white matter changes 3. No evidence of acute infarct, mass, edema or hemorrhage. 4. Opacified left maxillary sinus. Head CT 03/16/181738 Signed Impressions: CONCLUSION: 1. No acute intracranial findings. Chest X-Ray 03/16/181738 Signed Impressions: CONCLUSION: Negative examination. Physical Exam CONSTITUTIONAL/GENERAL: This is an adequately nourished patient, in no apparent distress. TUBES/LINES/DRAINS: SKIN: No jaundice, rashes, or lesions CARDIOVASCULAR: Regular rate and rhythm without murmurs, gallops, or rubs. No JVD. Peripheral pulses symmetric. RESPIRATORY/CHEST: Symmetric, unlabored respirations. Clear to auscultation. Breath sounds equal bilaterally. No wheezes, rales, or rhonchi. GASTROINTESTINAL: Abdomen soft, non-tender, nondistended. No hepato-splenomegaly , or palpable masses. No guarding. Bowel sounds present. MUSCULOSKELETAL: Extremities without clubbing, cyanosis, or edema. No joint tenderness or effusion noted. No calf tenderness. No mottling or clubbing. NEUROLOGICAL: Awake and alert. Motor and sensory grossly within normal limits. Follows commands. Mildly confused, recollection deficit is obvious, but speech is clear and coherent. Moves all extremities. MS unchanged sincve wedt PSYCHIATRIC: calm and cooperative Assessment & Plan Remarks Mental status change and fever - resolved fever ? dementia Staph bactremia., coag- negative staph - cw culture contaminant Hematuria, but no e/o UTI dc vancomycin OK to dc home off abx needs hematuria w/u : can b done as o/p Talita Osborn MD Mar 21, 2018 12:04
[2018-03-21 13:55] LABS: RPR SCREEN FOR REFLEX NON-REACTIVE (NON-REACTVE)
--- NOTE | 2018-03-21 15:00 | HHI.PR ---
Subjective Remarks Feels better today. Wants to go home. He is pleasantly confused. No motor deficit is walking in the hallways. No fever chills no nausea or vomiting. Objective Vitals Vital Signs Date Time Temp Pulse Resp B/P (MAP) Pulse Ox O2 Delivery O2 Flow Rate FiO2 03/21/18 12:01 97.2 79 20 151/85 (107) 97 03/21/18 12:00 78 03/21/18 08:01 97.4 73 20 171/91 (117) 97 03/21/18 08:00 Room Air 03/21/18 07:46 74 03/21/18 04:00 Room Air 03/21/18 04:00 98.1 76 18 154/84 (107) 99 03/21/18 03:42 75 03/21/18 00:00 Room Air 03/21/18 00:00 98.5 72 18 164/86 (112) 99 03/20/18 23:40 73 03/20/18 20:00 98.2 80 18 155/80 (105) 95 03/20/18 20:00 Room Air 03/20/18 19:49 87 03/20/18 16:00 85 03/20/18 15:00 98.4 83 20 138/83 (101) 96 I/O 03/20/18 03/20/18 03/20/18 03/21/18 03/21/18 03/21/18 07:00 15:00 23:00 07:00 15:00 23:00 Intake Total 1041 ml 450 ml 480 ml Output Total 700 ml 350 ml 400 ml Balance 341 ml 100 ml 80 ml Intake Oral 480 ml 450 ml 480 ml IV Total 561 ml Output Urine Total 700 ml 350 ml 400 ml # Voids 4 2 # Bowel Movements 2 4 2 Result Diagram: 03/21/18 0533 03/21/18 0533 Imaging Last Impressions Carotid Artery Ultrasound 03/18/18 0000 Signed Impressions: CONCLUSION: Mild plaque formation without hemodynamically significant stenosis. Brain MRI 03/17/18 0000 Signed Impressions: CONCLUSION: 1. 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 2. Moderate chronic ischemic white matter changes 3. No evidence of acute infarct, mass, edema or hemorrhage. 4. [place] [address] Signed Impressions: CONCLUSION: 1. No acute intracranial findings. Chest X-Ray 03/16/181738 Signed Impressions: CONCLUSION: Negative examination. Objective Remarks GENERAL: male pleasantly confused, appears in not acute distress. CARDIOVASCULAR: Regular rate and rhythm without murmurs, gallops, or rubs. RESPIRATORY: Clear to auscultation. Breath sounds equal bilaterally. No wheezes , rales, or rhonchi. GASTROINTESTINAL: Abdomen soft, non-tender, nondistended. No hepato-splenomegaly , or palpable masses. No guarding. MUSCULOSKELETAL: Extremities without clubbing, cyanosis, or edema. No joint tenderness, effusion, or edema noted. No calf tenderness. NEUROLOGICAL: More awake and alert. Pleasantly confused. Oriented only to self and place. Doesn't recall recent events, recalls remote events. Moves all 4 extremities spontaneously. A/P Assessment and Plan Acute encephalopathy 2/2 staph bacteremia. Encephalopathy resolving however per family the patient is not at baseline. Patient has a decline in mental status and cognitive function. She is not safe to live alone. Possible vascular dementia Alzheimer's dementia. Start memantine Agitated on and off. 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 Consult neurology for eval of altered mental status and aphasia Ammonia level slightly elevated. Start lactulose DC IVF NS +20 KCl at 125 cc/hour. Monitor lytes Consult PT/OT/speech therapy. Do cognitive evaluation Consult neuro EEG no seizures Check b12 and tSH normal Appreciate neurology recommendations Bacteremia with staph aureus Consult ID UA with rare bacteria bladder distention Urine culture negative Patient with history of recent UTI DC Vancomycin IV. DC Rocephin Discussed with Dr. Osborn infectious disease. Possible contaminant. No signs of infection. Discontinue IV antibiotics Hypokalemia Status post p.o./IV repletion Monitor BMP. Monitor and replace as need. CHRIS IV fluid hydration Monitor renal function Avoid nephrotoxic agents Diabetes mellitus type 2 Holding home metformin Sliding-scale insulin Monitor blood glucose Hypertension Clonidine as needed Tobaccoism. Patient smokes approximately 1 pack/day. Counselled. Nicotine patch. DVT ppx: Heparin Discussed with the patient, nurse. Discussed with family. Patient lives alone. Family [place] if patient does agree. Patient however needs LONG TERM or senior care facility for dementia unit is he is cognitively impaired. Gladys Win MD Mar 21, 2018 15:00
[2018-03-21] MEDS ORDERED: PHARMACY ORDERED LAB ONE (17:45)
[2018-03-21] MEDS ORDERED: LORazepam 1 MG TAB PO ONE (18:00)
== END 2018-03-21 18:14 | disposition home or self-care (01) | DRG 871 ==
LOC: NEPC 17:22 → NEDA 22:06 → N04A 03-17 01:14
PROVIDERS: ADMIT Hospitalist; ATTEND Hospitalist
DX: A41.1 Sepsis due to other specified staphylococcus (principal); G93.40 Encephalopathy, unspecified; N17.9 Acute kidney failure, unspecified; E11.9 Type 2 diabetes mellitus without complications; I10 Essential (primary) hypertension; B37.9 Candidiasis, unspecified; N32.89 Other specified disorders of bladder; R47.01 Aphasia; R31.9 Hematuria, unspecified; G93.89 Other specified disorders of brain; R41.81 Age-related cognitive decline; E87.6 Hypokalemia; F17.210 Nicotine dependence, cigarettes, uncomplicated; Z86.73 Personal history of transient ischemic attack (TIA), and cerebral infarction without residual deficits; Z79.84 Long term (current) use of oral hypoglycemic drugs; Z87.440 Personal history of urinary (tract) infections
CPT/HCPCS: 70450; 70551; 71045; 80048; 80053; 80061; 80074; 80307; 81001; 82140; 82607; 82948; 83036; 83605; 83735; 84443; 85025; 85610; 85652; 85730; 86403; 86592; 87040; 87077; 87086; 87186; 87205; 93005; 93880; 94150; 95819; 96361; 96365; 96366; 96368; J0696; J1630; J1644; J2060; J2543; J3370; J3480; J7030; J7040; J7050